=== PATIENT | female | born 1985 | race Caucasian/White ===

== ENCOUNTER → 2016-12-11 | Outpatient (CLI) | payer SELFPAY ==
[~2016-12-11] MED LIST: CALCTAB5 PO; PRENTAB26 PO
== END | disposition home or self-care (01) ==
LOC: C.LAB 07:13
PROVIDERS: ATTEND Nutritionist

== ENCOUNTER → 2017-02-25 | Outpatient (CLI) | payer BC ==
[2017-02-26 11:57] LABS: URINE APPEARANCE CLEAR (CLEAR); URINE BILIRUBIN NEG (NEG); URINE COLOR YELLOW; URINE NITRITE NEG (NEG); URINE SPECIFIC GRAVITY 1.008 (1.000-1.030); UROBILINOGEN NEG (NEG)
[2017-02-26 12:00] LABS: MANUAL MICROSCOPIC REQUIRED? NO; REVIEW REQ? NO
== END | disposition home or self-care (01) ==
LOC: C.LABSPEC 11:13
PROVIDERS: ATTEND Nurse Practitioner Family
DX: R39.9 Unspecified symptoms and signs involving the genitourinary system (principal)

== ENCOUNTER → 2017-03-19 | Outpatient (CLI) | payer BC ==
[2017-03-19 12:15] LABS: HEMATOCRIT 34.5 % (37-47); MEAN CELL VOLUME 89.6 fL (80-100); MEAN CORPUSCULAR HEMOGLOBIN 29.9 pg (25-34); MEAN CORPUSCULAR HGB CONC 33.3 g/dl (32-36); MEAN PLATELET VOLUME 11.9 fL (7.4-10.4); PLATELET COUNT 236 K/uL (130-400); RED BLOOD COUNT 3.85 M/uL (4.2-5.4); WHITE BLOOD COUNT 6.85 K/uL (4.8-10.8)
== END | disposition home or self-care (01) ==
LOC: C.LAB1850 09:49
PROVIDERS: ATTEND Physician Assistant
DX: N92.0 Excessive and frequent menstruation with regular cycle (principal)

== ENCOUNTER → 2017-05-06 | Outpatient (CLI) | payer BC ==
--- NOTE | 2017-05-06 16:23 | DIAGNOSTIC IMAGING REPORT ---
CT SCAN OF THE PARANASAL SINUSES CLINICAL HISTORY: Recurrent sinus infections. COMPARISON STUDY: No priors. TECHNIQUE: High-resolution CT scan of the paranasal sinuses is performed. Images are reviewed in the axial, sagittal, and coronal planes. IV contrast was not administered for this examination. A dose lowering technique was utilized adhering to the principles of ALARA. CT DOSE: 517.08 mGy.cm FINDINGS: Maxillary antra: There is mild mucosal thickening within the maxillary antra bilaterally. There are small air-fluid levels, right larger than left. Anterior ethmoid sinuses: By mucosal thickening and trace fluid is seen bilaterally, right greater than left. Posterior ethmoid sinuses: Mild mucosal thickening and trace fluid is seen bilaterally. Sphenoid sinuses: There is mild mucosal thickening in the sphenoid sinuses. An air-fluid level seen on the left. Frontal sinuses: Trace mucosal thickening seen on the right with a small air-fluid level. Clear on the left. Ostiomeatal complexes: The right ostiomeatal complex appears occluded. The left ostiomeatal complex appears patent with narrowing secondary to mucosal thickening. Frontoethmoidal and sphenoethmoidal recesses: The sphenoethmoidal recesses are patent with narrowing secondary to mucosal thickening. The right frontoethmoidal recess is occluded. The left frontoethmoidal recess is patent. Carotid arteries: The carotid arteries are covered noting a septal attachment on the right. Ethmoid roofs: The ethmoid roofs are symmetric. Nasal turbinates: Normal in appearance. Nasal septum: There is minimal leftward deviation of the bony nasal septum. Optic nerves: Covered. Orbits: The bony orbits are intact. Orbital contents are normal in appearance. Calvarium: The imaged calvarium is normal in appearance Mastoid air cells: Well pneumatized. Brain parenchyma: Partially visualized brain parenchyma is within normal limits. IMPRESSION: Pansinusitis as above. Electronically signed by: Sourav Oh M.D. 05/06/2017 4:21 PM Dictated Date/Time: 05/06/2017 4:18 PM
== END | disposition home or self-care (01) ==
LOC: C.CTS 15:53
PROVIDERS: ATTEND Nurse Practitioner Family
DX: J32.9 Chronic sinusitis, unspecified (principal); J01.40 Acute pansinusitis, unspecified

== ENCOUNTER → 2017-05-22 | Outpatient (CLI) | payer BC | END | disposition home or self-care (01) | LOC: C.PATHSPEC 11:00 | PROVIDERS: ATTEND Plastic Surgery | DX: D18.01 Hemangioma of skin and subcutaneous tissue (principal) ==

== ENCOUNTER → 2017-05-29 | Outpatient (CLI) | payer BC ==
--- NOTE | 2017-05-29 16:15 | DIAGNOSTIC IMAGING REPORT ---
CT OF THE SINUSES WITHOUT CONTRAST FUSION PROTOCOL CLINICAL HISTORY: Pansinusitis. COMPARISON STUDY: CT of the sinuses May 06, 2017. TECHNIQUE: Axial images of the sinuses were obtained without IV contrast according to Fusion protocol. Coronal reformats were viewed. FINDINGS: Visualized portions of the intracranial contents are unremarkable on this unenhanced examination. The mastoid air cells are clear as are the middle ears. The ossicles are intact. Orbits are unremarkable Global. Air fluid levels shown within the sinuses on exam of May 06, 2017 have resolved. Mucosal thickening has improved. There is mild mucosal thickening of the maxillary sinuses, right greater than left, there is minimal mucosal thickening and secretions within the left sphenoid sinus. The frontal and ethmoid sinuses are clear. The ostiomeatal complexes are patent. There is no bony destruction. There is no mass within the nasal cavity or the sinuses. There is no significant nasal septal deviation. Cribriform plate is intact. IMPRESSION: Near complete resolution of sinusitis shown on exam of May 06, 2017. Resolution of air-fluid levels with minimal residual mucosal thickening. Patent major drainage pathways. No evidence of acute sinusitis on this exam. Electronically signed by: Naveed Carpenter M.D. 05/29/2017 4:13 PM Dictated Date/Time: 05/29/2017 4:09 PM
== END | disposition home or self-care (01) ==
LOC: C.CTS 15:52
DX: J32.4 Chronic pansinusitis (principal); Z01.818 Encounter for other preprocedural examination

== ENCOUNTER → 2017-06-19 | Outpatient (CLI) | payer BC | END | disposition home or self-care (01) | LOC: C.LAB1850 14:31 | PROVIDERS: ATTEND Physician Assistant | DX: N93.9 Abnormal uterine and vaginal bleeding, unspecified (principal) ==

== ENCOUNTER → 2017-08-13 | Day surgery (SDC) | payer BC ==
[2017-07-28 08:25] VITALS: Ht 168.9 cm; Wt 61.4 kg
[~2017-08-13] VITALS: Ht 168.9 cm; Wt 61.4 kg
[~2017-08-13] MED LIST changes: +ATROPINE SULFATE 0.1 MG/ML 5ML SYR IV PRN; -CALCTAB5 PO; +DEXAMETHASONE SOD INJ 4 MG/ML VIAL ONE; +EpHEDrine SULFATE INJ 50 MG/ML AMP IV PRN; +FENTANYL CITRATE INJ 50 MCG/1 ML 2 ML VIAL IV PRN; +FENTANYL CITRATE INJ 50 MCG/1 ML 2 ML VIAL ONE; +IBUPROFEN 600 MG TAB PO PRN; +KETOROLAC TROMETHAMINE 30 MG/ML VIAL IV. PRN; +KETOROLAC TROMETHAMINE 30 MG/ML VIAL ONE; +LACTATED RINGER'S 1000ML 1,000 ML IV SCH; +LIDOCAINE HCL 2% 2 ML VIAL (20MG/ML) ONE; +MAGN1250 PO; +METOCLOPRAMIDE HCL INJ 5 MG/ML 2 ML VIAL IV PRN; +MIDAZOLAM HCL 1 MG/ML 2ML VIAL ONE; +MULT-506 PO; +ONDANSETRON INJ 2 MG/ML 2 ML VIAL IV PRN; +ONDANSETRON INJ 2 MG/ML 2 ML VIAL ONE; +OXYCODONE/ACETAMINOPHEN 5-325 TAB PO PRN; -PRENTAB26 PO; +PROPOFOL IV EMULSION 10 MG/ML 20 ML VIAL ONE; +SCOPOLAMINE 1.5 MG TDSY TD ONE; +SERT-234 PO; +SODIUM CHLORIDE 0.9% 1000ML 1,000 ML IV SCH
--- NOTE | 2017-08-13 12:00 | History & Physical Bridge - [place] ---
H&P Re-Evaluation Bridge Note: I have examined the patient, reviewed the History & Physical and in the interval since the performance of the History & Physical I have noted the following changes of clinical significance: No changes noted
--- NOTE | 2017-08-13 12:52 | Discharge Instructions-SurgCtr ---
Discharge Instructions Date of Service August 13, 2017. Visit Reason for Visit: Endometrial Polyp Discharge Discharge Diagnosis / Problem: D&C Hysteroscopy Discharge Goals Goal(s): Specific goals Medications Stopped Medications Name(s): Pt. was told not to take any of her medications this a.m.. Activity Recommendations Activity Limitations: per Instructions/Follow-up section Anesthesia . Post Anesthesia Instructions: If you have had General Anesthesia or IV Sedation: * Do not drive today. * Resume driving when surgeon permits. * Do not make important decisions or sign legal documents today. * Call surgeon for: 1. Temperature elevations greater than 101 degrees F. 2. Uncontrollable pain. 3. Excessive bleeding. 4. Persistent nausea and vomiting. 5. Medication intolerance (nausea, vomiting or rash). * For nausea and vomiting use only clear liquids such as: tea, soda, bouillon until nausea subsides, then gradually increase diet as tolerated. * If you have any concerns or questions, call your surgeon's office. If physician is unavailable and it is an emergency, call 911 or go to the nearest emergency room. . Instructions / Follow-Up Instructions / Follow-Up ACTIVITY RECOMMENDATIONS: * Avoid tampons, douching, hot tubs, pools, and intercourse until bleeding has stopped. * May shower as usual. * No strenuous activity for 24-48 hours. After 24-48 hours, you may do anything you feel like doing (driving and sports are okay). SPECIAL CARE INSTRUCTIONS: Special Diet: * Mild nausea may occur in the immediate post-operative period. * Take clear liquids such as tea, cola or bouillon until all nausea has subsided; you may then resume your normal diet. Special Care: * Light bleeding and vaginal spotting can last from a few days to 3-4 weeks. Call your doctor if bleeding becomes heavier than the heaviest part of your period. * Check your temperature twice a day for one week. If it goes above 100.4 degrees Fahrenheit (38.0 Celsius), notify your doctor. * Call your doctor's office for an appointment for 6 weeks after your surgery. FOLLOW-UP VISIT: Call your doctor's office for an appointment for 6 weeks after your surgery. Diet Recommendations Home Diet: resume previous diet Pending Studies Studies pending at discharge: no Medical Emergencies . Who to Call and When: Medical Emergencies: If at any time you feel your situation is an emergency, please call 911 immediately. . Non-Emergent Contact Non-Emergency issues call your: Primary Care Provider . . "Provider Documentation" section prepared by Emma Nichols. .
--- NOTE | 2017-08-13 13:26 | [facility] Post Operative Brief Note ---
Immediate Operative Summary Operative Date August 13, 2017. Pre-Operative Diagnosis Endometrial thickening Post-Operative Diagnosis Same Procedure(s) Performed Dilatation And Curettage, Hysteroscopy Surgeon Dr. Nichols Ticket Puller Surgeon(s) None Estimated Blood Loss 5ML Findings Consistent with Post-Op Diagnosis Specimens A: Endometrial Curettings Drains None Anesthesia Type General Complication(s) none Disposition Accompanied Pt To Recovery: no Disposition: Recovery Room / PACU
[2017-08-13 14:32] VITALS: BP 129/81; PULSE 57; O2SAT 100
--- NOTE | 2017-08-13 14:34 | Anesthesia Progress Nt - [facility] ---
Anesthesia Post Op Note Date & Time August 13, 2017 at 14:34 Vital Signs Pain Intensity: 1 Vital Signs Past 12 Hours Date Time Temp Pulse Resp B/P (MAP) Pulse Ox O2 Delivery O2 Flow Rate FiO2 08/13/17 14:12 37.1 65 16 139/87 (104) 100 Room Air 08/13/17 14:06 37.4 62 16 128/81 99 Room Air 08/13/17 14:05 128/81 08/13/17 14:03 70 18 08/13/17 14:03 72 18 100 08/13/17 14:00 128/82 08/13/17 13:58 67 26 08/13/17 13:58 67 26 100 08/13/17 13:55 128/80 08/13/17 13:53 69 17 08/13/17 13:53 66 17 100 08/13/17 13:52 65 18 100 08/13/17 13:52 64 18 08/13/17 13:50 122/88 08/13/17 13:47 59 32 08/13/17 13:47 55 32 95 08/13/17 13:45 126/88 08/13/17 13:42 58 16 100 08/13/17 13:42 57 16 08/13/17 13:40 127/88 08/13/17 13:37 61 27 08/13/17 13:37 61 27 100 08/13/17 13:35 133/88 08/13/17 13:33 125/86 08/13/17 13:32 37 64 16 125/86 100 Diffusion Mask 6 08/13/17 12:05 36.7 69 16 134/92 (106) 99 Room Air Notes Mental Status: alert / awake / arousable, participated in evaluation Pt Amnestic to Procedure: Yes Nausea / Vomiting: adequately controlled Pain: adequately controlled Airway Patency, RR, SpO2: stable & adequate BP & HR: stable & adequate Hydration State: stable & adequate Anesthetic Complications: no major complications apparent
--- NOTE | 2017-08-13 20:21 | OPERATIVE REPORT ---
DATE OF OPERATION: 08/13/2017 PREOPERATIVE DIAGNOSIS: Endometrial thickening. POSTOPERATIVE DIAGNOSIS: Endometrial thickening. PROCEDURE: D and C, hysteroscopy. SURGEON: Emma Nichols MD HEATING UNIT INSTALLER: None. ESTIMATED BLOOD LOSS: 5 mL FINDINGS: Consistent with postoperative diagnosis. SPECIMENS: Endometrial curettings. DRAINS: None. ANESTHESIA: General. FLUID DEFICIT: 110 mL normal saline. COMPLICATIONS: None. DISPOSITION: Stable to recovery. DESCRIPTION: Emma was placed on the table in dorsal lithotomy position with candy-cane stirrups, prepped and draped in standard sterile fashion and a hard time-out was taken. The bladder was emptied of urine via straight catheterization. Weighted and Jones specula were introduced to the vagina and the anterior lip of the cervix was grasped with a single-tooth tenaculum. The uterus then sounded to 9 cm depth. The cervix was serially dilated to allow passage of a hysteroscope. Hysteroscope was then introduced to the uterus. The endometrial cavity was visualized and seen to be filled with several projections of a polypoid tissue that was arising from multiple areas within the uterus notably, the anterior wall and also the right posterior wall. The scope was used to visualize both tubal ostia and then withdrawn. Sharp curettage was then used to curette the entire wall of the uterine cavity until good cry was felt. Polyp forceps were used to retrieve some significant sized pieces of tissue that were knocked loose using the curette. The scope was then reintroduced and the cavity was seen to have been restored to a normal shape with ostia visualized bilaterally. All instruments were withdrawn and the patient was transferred in stable condition to PACU. I attest to the content of the Intraoperative Record and any orders documented therein. Any exception s are noted below.
== END | disposition home or self-care (01) ==
LOC: X.SURG 11:48
PROVIDERS: ATTEND Obstetrics & Gynecology
DX: R93.8 Abnormal findings on diagnostic imaging of other specified body structures (principal); Z88.0 Allergy status to penicillin; Z91.012 Allergy to eggs; Z90.89 Acquired absence of other organs

== ENCOUNTER 2021-10-25 08:40 | Observation (INO) ==
[2021-10-25] MEDS ORDERED: MoRPHine SULFATE 4 MG/ML 1 ML CARP\\VIAL IV STA ×2 (09:13→10:25)
[2021-10-25] MEDS ORDERED: ONDANSETRON INJ 2 MG/ML 2 ML VIAL IV STA (09:13)
[2021-10-25 09:51] LABS: Basophils # (auto) 0.02 K/uL (0-0.2); Basophils % (auto) 0.2 %; Eosinophils # (auto) 0.11 K/uL (0-0.50); Eosinophils % (auto) 1.2 %; Hematocrit (blood only) 35.9 % (34.1-44.9); Hemoglobin 12.3 g/dl (12.0-16.0); Immature Granulocytes # (auto) 0.03 K/uL (0.00-0.02); Immature Granulocytes % (auto) 0.3 %; Lymphocytes # (auto) 1.05 K/uL (1.2-3.4); Lymphocytes % (auto) 11.1 %; Mean Corpuscular Hemoglobin 32.3 pg (25.0-34.0); Mean Corpuscular Hgb Conc 34.3 g/dL (32.0-36.0); Mean Corpuscular Volume 94.2 fL (80.0-100.0); Mean Platelet Volume 11.2 fL (9.4-12.3); Monocytes # (auto) 1.05 K/uL (0.24-0.82); Monocytes % (auto) 11.1 %; Neutrophils # (auto) 7.22 K/uL (1.4-6.5); Neutrophils % (auto) 76.1 %; Platelet Count 164 K/uL (130-400); RDW Coefficient of Variation 12.5 % (11.5-14.5); RDW Standard Deviation 42.9 fL (36.4-46.3); Red Blood Count 3.81 M/uL (3.93-5.22); White Blood Count 9.48 K/ul (4.8-10.8)
[2021-10-25 09:56] LABS: Appearance Urine Cloudy (Clear); Bacteria Urine Automated Negative (Negative); Bilirubin Urine Negative (Negative); Blood Urine Negative (Negative); Color Urine Yellow; Epithelial Cell Urine Auto >30 /lpf (0-5); Glucose Urine UA Negative (Negative); Ketones Urine Negative (Negative); Leukocyte Esterase Urine Negative (Negative); Nitrite Urine Negative (Negative); Protein Urine Negative (Negative); RBC Urine Automated 0-4 /hpf (0-4); Specific Gravity Urine 1.017 (1.000-1.030); Urobilinogen Urine Negative (Negative)
[2021-10-25 09:57] LABS: Pregnancy Test, Urine Negative (Negative)
[2021-10-25 10:23] LABS: Albumin Globulin Ratio 1.5 (0.9-2); BUN Creatinine Ratio 12.7 (10-20); Bilirubin,Total 1.1 mg/dl (0.2-1.0); Calcium 9.1 mg/dl (8.5-10.1); Creatinine Clr Calc Pharmacy 104.5 ml/min; Est GFR (African American) 125.2 ml/min; Est GFR (Non-African American) 108.1 ml/min; Globulin 2.7 gm/dl (2.5-4.0); Potassium 3.8 mmol/L (3.5-5.1); Total Protein 6.7 gm/dl (6.0-8.3)
[2021-10-25] MEDS ORDERED: OPTIRAY 320 100ml IV ONE (10:49)
--- NOTE | 2021-10-25 11:16 | CT Scan Report ---
CT abd pelvis IV con only CLINICAL HISTORY: Rectal bleed, R abd pain - h/o diverticulitis TECHNIQUE: Helical axial images of the abdomen and pelvis were obtained and displayed. Automated dose lowering techniques and/or adjustment according to patient size were utilized for this exam. This e xam was performed with intravenous contrast. CT DOSE: 319.95 mGy.cm COMPARISON: Comparison is made to CT abdomen pelvis 10/25/2021 FINDINGS: Lower chest: No acute abnormality Liver: Unremarkable. No focal lesions are seen. Gallbladder and biliary tree: No calcified gallstones. Normal caliber wall. No intra- or extrahepatic biliary ductal dilation. Pancreas: Unremarkable, no focal lesions. Spleen: Unremarkable. Adrenals: Unremarkable. Kidneys and ureters: Unremarkable. Bladder: Unremarkable. Reproductive organs: Unremarkable. Bowel: The appendix measures 7 mm in diameter. Inflammatory changes are seen about the cecum. Extensi ve diverticulosis is noted. Lymph nodes Retroperitoneal: Unremarkable. Pelvic: Unremarkable. Mesenteric: Subcentimeter nodes are seen most prominent in the right lower quadrant. Peritoneum: Free fluid is seen in the right lower quadrant. Vessels: Unremarkable. Abdominal wall: A fat-containing umbilical hernia is seen. Bones: Unremarkable. IMPRESSION: There is dilation and mild wall thickening of the base of the appendix. Inflammatory changes are foun d in the cecum. This is favored to represent acute appendicitis with reactive changes in the adjacent cecum, however colitis in the cecum with reactive inflammation of the appendix is also possible. Fat stranding and regional prominent lymph nodes are noted however there is no evidence of perforation o r abscess formation. ACT 112: Negative or not required by law. Electronically signed by: Dmo Bonilla M.D. 10/25/2021 11:14 AM
[2021-10-25] MEDS ORDERED: PIPERACILLIN/TAZOBACTAM 4.5 GM/120 ML BAG IV ONE (11:49)
--- NOTE | 2021-10-25 12:16 | History & Physical Report ---
Date of Service October 25, 2021 Assessment & Plan (1) Cecal diverticulitis: Plan: Suspected recurrent diverticulitis rather than appendicitis per surgery IV Zosyn, LR @ 125 ml/hr, NPO except sips with medications Consult surgery (2) Chronic constipation: Plan: Hold prucalopride (3) Anxiety: Plan: Continue sertraline 100mg PO daily Plan VTE Prophylaxis - given young age patient at low risk, chemical prophylaxis deferred Diet - NPO Disposition - admit to med/surg History of Present Illness Chief Complaint: Abdominal pain Primary Care Provider: Jeet Dey III, NICOLETTE Emma Jameson is a 36 year old female who presents to the ER with abdominal pain. She reports symptoms started on Friday (3 days ago) and progressively became worse since then. Similar to her last diverticulitis episode in 2017. Abdominal pain has stayed in lower abdomen but severity getting worse. Current severity 5/10, 7/10 on arrival to ER, at worst 9/10. Associated chills but no objective fever. The last 24 hours she has also had bright red blood per rectum. Taken off Orilissa on October 09 as ineffective for her endometriosis. On Motegrity for constipation. Sertraline for anxiety - notes she takes 100 rather than 150mg. In the ER CT A/P was concerning for possible appendicitis however on review by surgery suspect to be recurrence of her cecal diverticulitis. She was referred to medicine for admission and ongoing management for cecal diverticulitis. Allergies Allergy/AdvReac Type Severity Reaction Status Date / Time ciprofloxacin Allergy Intermediate LIPS Verified 10/25/21 12:03 SWELLING Home Medications Medication Instructions Recorded Confirmed Type sertraline 100 mg tablet 150 mg PO QAM 03/15/21 10/25/21 History prucalopride 2 mg tablet 2 mg PO DAILY #30 tabs 09/04/21 10/25/21 Rx (Motegrity) Past Med/Surg History Medical History Acute pancreatitis Anemia "MILD" Anxiety Cecal diverticulitis Chronic anemia Diverticulosis Fracture of proximal phalanx of toe GERD (gastroesophageal reflux disease) History of female infertility Hypertrophy of both inferior nasal turbinates Mass of soft tissue of right lower extremity Menorrhagia Ovarian cyst Ovarian hyperstimulation syndrome Recurrent sinus infections Spondylolisthesis Surgical History History of dilatation and curettage (08/2017) History of tonsillectomy History of tooth extraction Hx of colonoscopy (02/2019) Nausea and vomiting after administration of anesthetic agent Family History Grandmother (Paternal) Diabetes Grandmother (Maternal) Diabetes Father Abdominal aortic aneurysm Cardiac disorder Hypertension Myocardial infarction Sister Abdominal aortic aneurysm Aunt Abdominal aortic aneurysm paternal aunt Breast cancer maternal aunt Uncle Abdominal aortic aneurysm paternal uncle Mother Hypertension Family/Other Hypertension grandparent Myocardial infarction Grandfather (Maternal) Lung cancer Denies family history of Pancreatic cancer Ovarian cancer Prostate cancer Bleeding disorder Colorectal cancer Uterine cancer Social History Smoking Status: Never smoker Second Hand Exposure: No; Hx Alcohol Use: Yes Alcohol type: other Alcohol Intake Frequency: 2-3 x/Week Hx Substance Use: No Preferred Language: Turkmen Communication Ability: Effective Visual Impairment: No Limitations Hearing Ability: Normal Lease Out Worker Required: No Beliefs That Will Affect Care: None marital status: Current Living Situation: Spouse current occupational status: employed current occupation: Physical Therapist Other Information That Helps Us Care for You: No Feels Safe at Home: Yes Safety Concerns: Feels Safe At This Time Childhood Exposure to Second-Hand Smoke: Yes Dental Care, Regularly: Yes Physical Activity Frequency: Daily Seatbelt Use: always Sunscreen Use: Yes Assistive Devices: Glasses Review of Systems Review of Systems: All systems reviewed & are unremarkable except as noted in HPI & below Physical Exam Constitutional: WD/WN, vitals as above Eyes: PERRL, conjunctivae normal, anicteric sclerae Respiratory: normal respiratory effort, lungs clear to auscultation Cardiovascular: RRR, no murmur, no edema Gastrointestinal (Abdomen): Inspection/Auscultation: normal bowel sounds Percussion/Palpation: + abdomen tender (lower), + guarding and abdomen soft; abdomen not rigid Musculoskeletal: no cyanosis or clubbing, extremities motor strength 5/5 Skin: no rashes, warm and dry Neurologic: moves all extremities and awake; not confused Psychiatric: A+Ox3, euthymic affect Results & Data Results & Data ([facility]) Vital Signs (Past 12 Hours) Vital Signs Temp Pulse Resp BP Pulse Ox O2 Del Method 07/21/22 08:43 36.7 C 97 H 18 126/84 100 Room Air Laboratory Results Abnormal lab results 10/25/21 10/25/21 10/25/21 Range/Units 09:34 09:34 09:40 RBC 3.81 L (3.93-5.22) M/uL Neut # (Auto) 7.22 H (1.4-6.5) K/uL Lymph # (Auto) 1.05 L (1.2-3.4) K/uL Bowman # (Auto) 1.05 H (0.24-0.82) K/uL Immature Gran # (Auto) 0.03 H (0.00-0.02) K/uL Total Bilirubin 1.1 H (0.2-1.0) mg/dl Urine Appearance Cloudy A (Clear) U Epithel Cells (Auto) >30 H (0-5) /lpf Diagnostic Findings CT abd pelvis IV con only CLINICAL HISTORY: Rectal bleed, R abd pain - h/o diverticulitis TECHNIQUE: Helical axial images of the abdomen and pelvis were obtained and displayed. Automated dose lowering techniques and/or adjustment according to patient size were utilized for this exam. This exam was performed with intravenous contrast. CT DOSE: 319.95 mGy.cm COMPARISON: Comparison is made to CT abdomen pelvis 10/25/2021 FINDINGS: Lower chest: No acute abnormality Liver: Unremarkable. No focal lesions are seen. Gallbladder and biliary tree: No calcified gallstones. Normal caliber wall. No intra- or extrahepatic biliary ductal dilation. Pancreas: Unremarkable, no focal lesions. Spleen: Unremarkable. Adrenals: Unremarkable. Kidneys and ureters: Unremarkable. Bladder: Unremarkable. Reproductive organs: Unremarkable. Bowel: The appendix measures 7 mm in diameter. Inflammatory changes are seen about the cecum. Extensive diverticulosis is noted. Lymph nodes Retroperitoneal: Unremarkable. Pelvic: Unremarkable. Mesenteric: Subcentimeter nodes are seen most prominent in the right lower quadrant. Peritoneum: Free fluid is seen in the right lower quadrant. Vessels: Unremarkable. Abdominal wall: A fat-containing umbilical hernia is seen. Bones: Unremarkable. IMPRESSION: There is dilation and mild wall thickening of the base of the appendix. Inflammatory changes are found in the cecum. This is favored to represent acute appendicitis with reactive changes in the adjacent cecum, however colitis in the cecum with reactive inflammation of the appendix is also possible. Fat stranding and regional prominent lymph nodes are noted however there is no evidence of perforation or abscess formation. Medications Administered ER medications given: Zosyn 4.5 g IV Morphine 4 mg IV x2 Ondansetron 4 mg IV Code Status & VTE Plan Code Status Full VTE Prophylaxis Plan VTE Prophylaxis will be ordered: No PG Care Time/CCT Total # of Minutes Spent Total Time Spent with Patient: Total time spent is greater than 50% in coordination of care (as documented) at patient's floor/unit and/or counseling patient: Coding Level of Care Code 55669 Initial Inpt Care Lvl 2 Diagnoses Cecal diverticulitis K57.32 Chronic constipation K59.09 Anxiety F41.9
--- NOTE | 2021-10-25 12:51 | Surgery Consultation ---
Date of Consultation October 25, 2021 Assessment & Plan (1) Cecal diverticulitis: Plan 36 year-old female with history of cecal diverticulitis in 2019 now presents to ED with 4 day history of right lower abdominal pain with associated nausea, vomiting, dark stools and hematochezia. No leukocytosis. CT scan showing cecal inflammation with mild inflammation of the base of the appendix. Review of CT with radiologist shows normal appendiceal tip and likely inflammation of base of appendix is from the cecal diverticulitis. Plan: Dr. Almeida discussed imaging findings with patient and her . Likely another episode of cecal diverticulitis based on symptoms, prior history and imaging findings. Would recommend conservative management with IV fluids, bowel rest, IV antibiotics and repeating colonoscopy in 6-8 weeks. May require discussion of surgical resection given recurrent episodes of diverticulitis and her young age. This can be discussion as outpatient once she is through this acute phase. will continue to follow Dr. Almeida has seen and examined pt, see addendum for further recommendations/plan. Supervising Physician Co-Signing Physician Notes I have seen and examined the patient directly, and agree with the above assessment and plan. It appears that this is a recurrence of her cecal diverticulitis, and not appendicitis. She has had this in the past. We will treat her with IV antibiotics and bowel rest. She will require colonoscopy in 6 to 8 weeks. We discussed the potential need for cecal resection down the road. We will continue to follow while she is in the hospital. History of Present Illness Reason for Consultation: Cecal diverticulitis, possible appendicitis Requesting Physician: Bartolo Waterman PA-C Attending Physician: Johann Echevarria MD History of Present Illness Emma is a 36 year-old female with history of cecal diverticulitis in 2019 who presented to ED with compliant of right sided abdominal pain with associated nausea, vomiting, rectal bleeding that began on Friday. States she has chronic abdominal pain with history of possible endometriosis and ovarian cysts. Usually pain associated with her ovaries is on the left side. History of cecal diverticulitis treated conservatively in 2019 and had colonoscopy which showed two diverticula in the cecum. States she has chronic constipation and takes medications regularly for her constipation. No prior abdominal surgeries. stool looked dark black yesterday and had bright red blood in stools today. ER work-up showed no leukocytosis. CT scan of abdomen and pelvis showed some mild dilatation and wall thickening of the base of the appendix with inflammatory changes of the cecum. In review of CT scan with radiologist, looks like tip of appendix is normal and the inflammation of the base of the appendix is likely from cecal diverticulitis. Allergies Allergy/AdvReac Type Severity Reaction Status Date / Time ciprofloxacin Allergy Intermediate LIPS Verified 10/25/21 12:03 SWELLING Home Medications Medication Instructions Recorded Confirmed Type sertraline 100 mg tablet 150 mg PO QAM 03/15/21 10/25/21 History prucalopride 2 mg tablet 2 mg PO DAILY #30 tabs 09/04/21 10/25/21 Rx ([facility]) Patient History Medical History (Updated 10/25/21 @ 12:32 by Johann Echevarria MD) Acute pancreatitis Anemia "MILD" Anxiety Cecal diverticulitis Chronic anemia Diverticulosis Fracture of proximal phalanx of toe GERD (gastroesophageal reflux disease) History of female infertility Hypertrophy of both inferior nasal turbinates Mass of soft tissue of right lower extremity Menorrhagia Ovarian cyst Ovarian hyperstimulation syndrome Recurrent sinus infections Spondylolisthesis Surgical History History of dilatation and curettage (08/2017) History of tonsillectomy History of tooth extraction Hx of colonoscopy (02/2019) Nausea and vomiting after administration of anesthetic agent Family History Grandmother (Paternal) Diabetes Grandmother (Maternal) Diabetes Father Abdominal aortic aneurysm Cardiac disorder Hypertension Myocardial infarction Sister Abdominal aortic aneurysm Aunt Abdominal aortic aneurysm paternal aunt Breast cancer maternal aunt Uncle Abdominal aortic aneurysm paternal uncle Mother Hypertension Family/Other Hypertension grandparent Myocardial infarction Grandfather (Maternal) Lung cancer Denies family history of Pancreatic cancer Ovarian cancer Prostate cancer Bleeding disorder Colorectal cancer Uterine cancer Social History Smoking Status: Never smoker Second Hand Exposure: No; Hx Alcohol Use: Yes Alcohol type: beer, wine and hard liquor Alcohol Intake Frequency: 2-3 x/Week Hx Substance Use: No Preferred Language: Yoruba Communication Ability: Effective Visual Impairment: No Limitations Hearing Ability: Normal Construction Accountant Required: No Beliefs That Will Affect Care: None marital status: Current Living Situation: Spouse current occupational status: employed current occupation: Physical Therapist Feels Safe at Home: Yes Childhood Exposure to Second-Hand Smoke: Yes Dental Care, Regularly: Yes Physical Activity Frequency: Daily Seatbelt Use: always Sunscreen Use: Yes Assistive Devices: Glasses Review of Systems Review of Systems: All systems reviewed & are unremarkable except as noted in HPI & below Physical Exam Constitutional: WD/WN, vitals as above no acute distress and not ill appearing Neck: normal visual inspection and trachea midline Respiratory: normal respiratory effort, lungs clear to auscultation Cardiovascular: RRR, no murmur, no edema Gastrointestinal (Abdomen): Inspection/Auscultation: abdomen normal to inspection; abdomen not distended Percussion/Palpation: + abdomen tender (RLQ and RUQ), + guarding (voluntary with deep palpation) and abdomen soft; abdomen not rigid Skin: no rashes, warm and dry Psychiatric: A+Ox3, euthymic affect Results & Data ([facility]) Vital Signs (Past 12 Hours) Vital Signs Temp Pulse Resp BP Pulse Ox O2 Del Method 10/25/21 08:43 36.7 C 97 H 18 126/84 100 Room Air Laboratory Results 10/25/21 10/25/21 10/25/21 Range/Units 09:40 09:40 09:34 WBC (4.8-10.8) K/ul RBC (3.93-5.22) M/uL Hgb (12.0-16.0) g/dl Hct (34.1-44.9) % MCV (80.0-100.0) fL MCH (25.0-34.0) pg MCHC (32.0-36.0) g/dL RDW Std Deviation (36.4-46.3) fL RDW Coeff of [place] (11.5-14.5) % Plt Count (130-400) K/uL MPV (9.4-12.3) fL Immature Gran % (Auto) % Neut % (Auto) % Lymph % (Auto) % [place] % (Auto) % Eos % (Auto) % Baso % (Auto) % Neut # (Auto) (1.4-6.5) K/uL Lymph # (Auto) (1.2-3.4) K/uL [place] # (Auto) (0.24-0.82) K/uL Eos # (Auto) (0-0.50) K/uL Baso # (Auto) (0-0.2) K/uL Immature Gran # (Auto) (0.00-0.02) K/uL Sodium 139 (136-145) mmol/L Potassium 3.8 (3.5-5.1) mmol/L Chloride 106 (98-107) mmol/L Carbon Dioxide 28 (21-32) mmol/L Anion Gap 5 (3-11) BUN 9 (6-23) mg/dl Creatinine 0.71 (0.6-1.2) mg/dl Est Cr Clr Drug Dosing 104.5 ml/min Est GFR ( Amer) 125.2 ml/min Est GFR (Non-Af Amer) 108.1 ml/min BUN/Creatinine Ratio 12.7 (10-20) Glucose 84 (70-99(Fasting)) mg/dl Calcium 9.1 (8.5-10.1) mg/dl Total Bilirubin 1.1 H (0.2-1.0) mg/dl AST 15 (13-39) U/L ALT 11 (7-52) U/L Alkaline Phosphatase 66 (34-104) U/L Total Protein 6.7 (6.0-8.3) gm/dl Albumin 4.0 (3.4-5.0) gm/dl Globulin 2.7 (2.5-4.0) gm/dl Albumin/Globulin Ratio 1.5 (0.9-2) Lipase 15 (11-82) U/L Urine Color Yellow Urine Appearance Cloudy A (Clear) Urine pH 7.0 (4.5-7.5) Ur Specific [place] 1.017 (1.000-1.030) Urine Protein Negative (Negative) Urine Glucose (UA) Negative (Negative) Urine Ketones Negative (Negative) Urine Blood Negative (Negative) Urine Nitrite Negative (Negative) Urine Bilirubin Negative (Negative) Urine Urobilinogen Negative (Negative) Ur Leukocyte Esterase Negative (Negative) Urine WBC (Auto) 1-5 (0-5) /hpf Urine RBC (Auto) 0-4 (0-4) /hpf U Hyaline Cast (Auto) 1-5 (0-5) /lpf U Epithel Cells (Auto) >30 H (0-5) /lpf Urine Bacteria (Auto) Negative (Negative) Urine Test Negative (Negative) 10/25/21 Range/Units 09:34 WBC 9.48 (4.8-10.8) K/ul RBC 3.81 L (3.93-5.22) M/uL Hgb 12.3 (12.0-16.0) g/dl Hct 35.9 (34.1-44.9) % MCV 94.2 (80.0-100.0) fL MCH 32.3 (25.0-34.0) pg MCHC 34.3 (32.0-36.0) g/dL RDW Std Deviation 42.9 (36.4-46.3) fL RDW Coeff of [place] 12.5 (11.5-14.5) % Plt Count 164 (130-400) K/uL MPV 11.2 (9.4-12.3) fL Immature Gran % (Auto) 0.3 % Neut % (Auto) 76.1 % Lymph % (Auto) 11.1 % [place] % (Auto) 11.1 % Eos % (Auto) 1.2 % Baso % (Auto) 0.2 % Neut # (Auto) 7.22 H (1.4-6.5) K/uL Lymph # (Auto) 1.05 L (1.2-3.4) K/uL [place] # (Auto) 1.05 H (0.24-0.82) K/uL Eos # (Auto) 0.11 (0-0.50) K/uL Baso # (Auto) 0.02 (0-0.2) K/uL Immature Gran # (Auto) 0.03 H (0.00-0.02) K/uL Sodium (136-145) mmol/L Potassium (3.5-5.1) mmol/L Chloride (98-107) mmol/L Carbon Dioxide (21-32) mmol/L Anion Gap (3-11) BUN (6-23) mg/dl Creatinine (0.6-1.2) mg/dl Est Cr Clr Drug Dosing ml/min Est GFR ( Amer) ml/min Est GFR (Non-Af Amer) ml/min BUN/Creatinine Ratio (10-20) Glucose (70-99(Fasting)) mg/dl Calcium (8.5-10.1) mg/dl Total Bilirubin (0.2-1.0) mg/dl AST (13-39) U/L ALT (7-52) U/L Alkaline Phosphatase (34-104) U/L Total Protein (6.0-8.3) gm/dl Albumin (3.4-5.0) gm/dl Globulin (2.5-4.0) gm/dl Albumin/Globulin Ratio (0.9-2) Lipase (11-82) U/L Urine Color Urine Appearance (Clear) Urine pH (4.5-7.5) Ur Specific [place] (1.000-1.030) Urine Protein (Negative) Urine Glucose (UA) (Negative) Urine Ketones (Negative) Urine Blood (Negative) Urine Nitrite (Negative) Urine Bilirubin (Negative) Urine Urobilinogen (Negative) Ur Leukocyte Esterase (Negative) Urine WBC (Auto) (0-5) /hpf Urine RBC (Auto) (0-4) /hpf U Hyaline Cast (Auto) (0-5) /lpf U Epithel Cells (Auto) (0-5) /lpf Urine Bacteria (Auto) (Negative) Urine Test (Negative) Diagnostic Findings CT abd pelvis IV con only CLINICAL HISTORY: Rectal bleed, R abd pain - h/o diverticulitis TECHNIQUE: Helical axial images of the abdomen and pelvis were obtained and displayed. Automated dose lowering techniques and/or adjustment according to patient size were utilized for this exam. This exam was performed with intravenous contrast. CT DOSE: 319.95 mGy.cm COMPARISON: Comparison is made to CT abdomen pelvis 10/25/2021 FINDINGS: Lower chest: No acute abnormality Liver: Unremarkable. No focal lesions are seen. Gallbladder and biliary tree: No calcified gallstones. Normal caliber wall. No intra- or extrahepatic biliary ductal dilation. Pancreas: Unremarkable, no focal lesions. Spleen: Unremarkable. Adrenals: Unremarkable. Kidneys and ureters: Unremarkable. Bladder: Unremarkable. Reproductive organs: Unremarkable. Bowel: The appendix measures 7 mm in diameter. Inflammatory changes are seen about the cecum. Extensive diverticulosis is noted. Lymph nodes Retroperitoneal: Unremarkable. Pelvic: Unremarkable. Mesenteric: Subcentimeter nodes are seen most prominent in the right lower quadrant. Peritoneum: Free fluid is seen in the right lower quadrant. Vessels: Unremarkable. Abdominal wall: A fat-containing umbilical hernia is seen. Bones: Unremarkable. IMPRESSION: There is dilation and mild wall thickening of the base of the appendix. Inflammatory changes are found in the cecum. This is favored to represent acute appendicitis with reactive changes in the adjacent cecum, however colitis in the cecum with reactive inflammation of the appendix is also possible. Fat stranding and regional prominent lymph nodes are noted however there is no evidence of perforation or abscess formation.
[2021-10-25] MEDS ORDERED: ONDANSETRON INJ 2 MG/ML 2 ML VIAL IV PRN (14:31)
[2021-10-25] MEDS: MoRPHine SULFATE 4 MG/ML 1 ML CARP\\VIAL IV PRN ×2 (15:36→19:54)
--- NOTE | 2021-10-25 15:55 | Emergency Department Note ---
History of Present Illness General Chief complaint: Abdominal Pain Stated complaint: ABDOMINAL PAIN Time Seen by Provider: 10/25/21 08:55 History of Present Illness Maximum Pain Intensity: 7 36-year-old female who presents to the emergency department for evaluation of right lower quadrant abdominal pain and blood in her stool. The patient reports that she started with discomfort on Friday, and noticed blood in her stools over the past few days. The blood initially looked dark in color, and was mixed in with the stool. She noticed brighter blood this morning. The patient has been nauseated for the past 2 days with vomiting overnight. Patient reports a prior history of cecal diverticulitis in 2018. She did have a colonoscopy at that time, with no additional colonoscopies since. Patient also reports a prior history of ovarian cysts IBS-C. She denies prior history of abdominal surgeries. The patient rates her discomfort a 6 out of 10. Home Medications Medication Instructions Recorded Confirmed Type sertraline 100 mg tablet 150 mg PO QAM 03/15/21 10/25/21 History prucalopride 2 mg tablet 2 mg PO DAILY #30 tabs 09/04/21 10/25/21 Rx ([facility]) Allergies Allergy/AdvReac Type Severity Reaction Status Date / Time ciprofloxacin Allergy Intermediate LIPS Verified 10/25/21 12:03 SWELLING Past Med/Surg History Medical History Acute pancreatitis Anemia "MILD" Anxiety Cecal diverticulitis Chronic anemia Diverticulosis Fracture of proximal phalanx of toe GERD (gastroesophageal reflux disease) History of female infertility Hypertrophy of both inferior nasal turbinates Mass of soft tissue of right lower extremity Menorrhagia Ovarian cyst Ovarian hyperstimulation syndrome Recurrent sinus infections Spondylolisthesis Surgical History History of dilatation and curettage (08/2017) History of tonsillectomy History of tooth extraction Hx of colonoscopy (02/2019) Nausea and vomiting after administration of anesthetic agent Family History Grandmother (Paternal) Diabetes Grandmother (Maternal) Diabetes Father Abdominal aortic aneurysm Cardiac disorder Hypertension Myocardial infarction Sister Abdominal aortic aneurysm Aunt Abdominal aortic aneurysm paternal aunt Breast cancer maternal aunt Uncle Abdominal aortic aneurysm paternal uncle Mother Hypertension Family/Other Hypertension grandparent Myocardial infarction Grandfather (Maternal) Lung cancer Denies family history of Pancreatic cancer Ovarian cancer Prostate cancer Bleeding disorder Colorectal cancer Uterine cancer Social History Smoking Status: Never smoker Second Hand Exposure: No; Hx Alcohol Use: Yes Alcohol type: other Alcohol Intake Frequency: 2-3 x/Week Hx Substance Use: No Preferred Language: Georgian Communication Ability: Effective Visual Impairment: No Limitations Hearing Ability: Normal Clinic Coordinator Required: No Beliefs That Will Affect Care: None marital status: Current Living Situation: Spouse current occupational status: employed current occupation: Physical Therapist Other Information That Helps Us Care for You: No Feels Safe at Home: Yes Safety Concerns: Feels Safe At This Time Childhood Exposure to Second-Hand Smoke: Yes Dental Care, Regularly: Yes Physical Activity Frequency: Daily Seatbelt Use: always Sunscreen Use: Yes Assistive Devices: Glasses Review of Systems 10 system review was performed and was negative except for pertinent positives and negatives as indicated in history of present illness Physical Exam Vital Signs Vital Signs - 24 hr 10/25/21 08:43 10/25/21 09:46 10/25/21 09:50 Temperature 36.7 C Temperature Source Oral Pulse Rate 97 H 86 86 Pulse Rate from SpO2 Sensor 86 88 Respiratory Rate 18 16 18 Blood Pressure 126/84 Blood Pressure Mean 98 Pulse Oximetry 100 95 95 Oxygen Delivery Method Room Air Sepsis Recent Fever Within 48 Hours No Sepsis New/Unexplained Change in Mental Status No Sepsis Action Taken by Nursing No Action Required 10/25/21 10:00 10/25/21 10:10 10/25/21 10:20 Temperature Temperature Source Pulse Rate 86 85 88 Pulse Rate from SpO2 Sensor 85 87 89 Respiratory Rate 16 21 19 Blood Pressure Blood Pressure Mean Pulse Oximetry 95 95 96 Oxygen Delivery Method Sepsis Recent Fever Within 48 Hours Sepsis New/Unexplained Change in Mental Status Sepsis Action Taken by Nursing 10/25/21 10:30 10/25/21 10:40 10/25/21 10:55 Temperature Temperature Source Pulse Rate 84 81 92 H Pulse Rate from SpO2 Sensor 84 80 Respiratory Rate 22 14 Blood Pressure Blood Pressure Mean Pulse Oximetry 95 96 Oxygen Delivery Method Sepsis Recent Fever Within 48 Hours Sepsis New/Unexplained Change in Mental Status Sepsis Action Taken by Nursing 10/25/21 11:00 10/25/21 11:10 10/25/21 11:20 Temperature Temperature Source Pulse Rate 80 85 86 Pulse Rate from SpO2 Sensor 80 85 86 Respiratory Rate 14 15 24 Blood Pressure Blood Pressure Mean Pulse Oximetry 97 94 94 Oxygen Delivery Method Sepsis Recent Fever Within 48 Hours Sepsis New/Unexplained Change in Mental Status Sepsis Action Taken by Nursing 10/25/21 11:30 10/25/21 11:40 10/25/21 11:50 Temperature Temperature Source Pulse Rate 86 97 H 93 H Pulse Rate from SpO2 Sensor 86 97 H 94 H Respiratory Rate 15 17 15 Blood Pressure Blood Pressure Mean Pulse Oximetry 95 96 95 Oxygen Delivery Method Sepsis Recent Fever Within 48 Hours Sepsis New/Unexplained Change in Mental Status Sepsis Action Taken by Nursing 10/25/21 12:00 10/25/21 12:10 10/25/21 12:20 Temperature Temperature Source Pulse Rate 91 H 91 H 93 H Pulse Rate from SpO2 Sensor 92 H 90 92 H Respiratory Rate 17 19 14 Blood Pressure Blood Pressure Mean Pulse Oximetry 99 96 95 Oxygen Delivery Method Sepsis Recent Fever Within 48 Hours Sepsis New/Unexplained Change in Mental Status Sepsis Action Taken by Nursing 10/25/21 12:30 Temperature Temperature Source Pulse Rate 89 Pulse Rate from SpO2 Sensor 88 Respiratory Rate 16 Blood Pressure Blood Pressure Mean Pulse Oximetry 95 Oxygen Delivery Method Sepsis Recent Fever Within 48 Hours Sepsis New/Unexplained Change in Mental Status Sepsis Action Taken by Nursing CONSTITUTIONAL: Healthy and well nourished. Patient appears in moderate discomfort. HEENT: No scleral icterus or conjunctival injection/pallor. NECK: Full active range of motion without discomfort. RESPIRATORY: Clear to auscultation bilaterally with no wheezing, crackles, rhonchi or stridor. CARDIOVASCULAR: Regular rate and rhythm with no murmurs, rubs or gallops. GASTROINTESTINAL: Bowel sounds present in all quadrants. Patient has notable tenderness to palpation, guarding and rebound of the right lower quadrant region. Negative CVA tenderness. MUSCULOSKELETAL: Full range of motion of all joints without discomfort. INTEGUMENTARY: No rash or other significant dermatologic conditions noted. HEMATOLOGIC: No ecchymosis or petechiae. PSYCHIATRIC: Positive affect. NEUROLOGIC: No focal neurologic deficits noted. Course Course Patient history and physical exam were performed. Nurses notes were reviewed. Vital signs were reviewed and were normal. IV access was established, and labs are drawn. The patient was hydrated with a liter normal saline, and administered IV morphine and Zofran for pain. Review of labs showed a normal white count with left shift and bandemia. CMP was otherwise grossly normal other than a mildly elevated total bilirubin at 1.1. Urinalysis shows no hematuria or signs of infection, and urine was negative. CT with IV contrast of the abdomen and pelvis shows inflammatory changes within the cecum, as well as dilatation and mild wall thickening of the base of the appendix. Radiologist suggested acute appendicitis. The patient was administered an additional dose of IV morphine because of persistent pain. Findings were discussed with the patient and . I also discussed the case further with Dr. Ferrara, ED attending physician, as well as Dr. Almeida, general surgeon on-call. Dr. Almeida reviewed CT images, and given the fact that the patient has had GI bleeding, has suggested that she likely has a cecal diverticulitis as opposed to an appendicitis. He will evaluate the patient, but however has recommended hospitalist admission for IV antibiotics. The patient was in agreement with this plan. The patient was ordered IV Zosyn. The case was then further discussed with Dr. Echevarria, [facility] hospitalist. Please see the hospitalist and general surgeon dictations for further treatment and final disposition. The patient did report improvement of her pain with IV medications provided. COVID-19 testing was ordered and was also negative. Administered Medications Morphine Sulfate (Morphine Sulfate 4 Mg/Ml 1 Ml Carp\\Vial) 4 mg IV Q4H PRN PRN Reason: Pain Stop: 11/08/21 14:30 Last Admin: 10/25/21 15:36 Dose: 4 mg Documented By: ACP Discontinued Medications Piperacillin Sod/Tazobactam Sod (Zosyn) 4.5 gm in 120 mls @ 240 mls/hr IV NOW ONE Stop: 10/25/21 12:18 Last Admin: 10/25/21 12:22 Dose: 240 mls/hr Documented By: AB Ioversol (Optiray 320 100ml) 95 ml IV ONCE ONE Stop: 10/25/21 10:50 Last Admin: 10/25/21 10:52 Dose: 95 ml Documented By: DEANN Morphine Sulfate (Morphine Sulfate 4 Mg/Ml 1 Ml Carp\\Vial) 4 mg IV NOW STA Stop: 10/25/21 09:14 Last Admin: 10/25/21 09:35 Dose: 4 mg Documented By: AM Morphine Sulfate (Morphine Sulfate 4 Mg/Ml 1 Ml Carp\\Vial) 4 mg IV NOW STA Stop: 10/25/21 10:26 Last Admin: 10/25/21 11:00 Dose: 4 mg Documented By: Ondansetron HCl (Ondansetron Inj 2 Mg/Ml 2 Ml Vial) 4 mg IV NOW STA Stop: 10/25/21 09:14 Last Admin: 10/25/21 09:33 Dose: 4 mg Documented By: AM Medical Decision Making Medical Records Attestation: I reviewed the patient's medical records. Home Medications Current Medication List: was personally reviewed by me Laboratory Data Attestation: I reviewed the patient's lab results. Result diagrams: 10/25/21 09:34 10/25/21 09:34 Lab Results 10/25/21 10/25/21 10/25/21 Range/Units 09:34 09:34 09:40 WBC 9.48 (4.8-10.8) K/ul RBC 3.81 L (3.93-5.22) M/uL Hgb 12.3 (12.0-16.0) g/dl Hct 35.9 (34.1-44.9) % MCV 94.2 (80.0-100.0) fL MCH 32.3 (25.0-34.0) pg MCHC 34.3 (32.0-36.0) g/dL RDW Std Deviation 42.9 (36.4-46.3) fL RDW Coeff of [place] 12.5 (11.5-14.5) % Plt Count 164 (130-400) K/uL MPV 11.2 (9.4-12.3) fL Immature Gran % (Auto) 0.3 % Neut % (Auto) 76.1 % Lymph % (Auto) 11.1 % [place] % (Auto) 11.1 % Eos % (Auto) 1.2 % Baso % (Auto) 0.2 % Neut # (Auto) 7.22 H (1.4-6.5) K/uL Lymph # (Auto) 1.05 L (1.2-3.4) K/uL [place] # (Auto) 1.05 H (0.24-0.82) K/uL Eos # (Auto) 0.11 (0-0.50) K/uL Baso # (Auto) 0.02 (0-0.2) K/uL Immature Gran # (Auto) 0.03 H (0.00-0.02) K/uL Sodium 139 (136-145) mmol/L Potassium 3.8 (3.5-5.1) mmol/L Chloride 106 (98-107) mmol/L Carbon Dioxide 28 (21-32) mmol/L Anion Gap 5 (3-11) BUN 9 (6-23) mg/dl Creatinine 0.71 (0.6-1.2) mg/dl Est Cr Clr Drug Dosing 104.5 ml/min Est GFR ( Amer) 125.2 ml/min Est GFR (Non-Af Amer) 108.1 ml/min BUN/Creatinine Ratio 12.7 (10-20) Glucose 84 (70-99(Fasting)) mg/dl Calcium 9.1 (8.5-10.1) mg/dl Total Bilirubin 1.1 H (0.2-1.0) mg/dl AST 15 (13-39) U/L ALT 11 (7-52) U/L Alkaline Phosphatase 66 (34-104) U/L Total Protein 6.7 (6.0-8.3) gm/dl Albumin 4.0 (3.4-5.0) gm/dl Globulin 2.7 (2.5-4.0) gm/dl Albumin/Globulin Ratio 1.5 (0.9-2) Lipase 15 (11-82) U/L Urine Color Yellow Urine Appearance Cloudy A (Clear) Urine pH 7.0 (4.5-7.5) Ur Specific [place] 1.017 (1.000-1.030) Urine Protein Negative (Negative) Urine Glucose (UA) Negative (Negative) Urine Ketones Negative (Negative) Urine Blood Negative (Negative) Urine Nitrite Negative (Negative) Urine Bilirubin Negative (Negative) Urine Urobilinogen Negative (Negative) Ur Leukocyte Esterase Negative (Negative) Urine WBC (Auto) 1-5 (0-5) /hpf Urine RBC (Auto) 0-4 (0-4) /hpf U Hyaline Cast (Auto) 1-5 (0-5) /lpf U Epithel Cells (Auto) >30 H (0-5) /lpf Urine Bacteria (Auto) Negative (Negative) Urine Test (Negative) 10/25/21 Range/Units 09:40 WBC (4.8-10.8) K/ul RBC (3.93-5.22) M/uL Hgb (12.0-16.0) g/dl Hct (34.1-44.9) % MCV (80.0-100.0) fL MCH (25.0-34.0) pg MCHC (32.0-36.0) g/dL RDW Std Deviation (36.4-46.3) fL RDW Coeff of [place] (11.5-14.5) % Plt Count (130-400) K/uL MPV (9.4-12.3) fL Immature Gran % (Auto) % Neut % (Auto) % Lymph % (Auto) % [place] % (Auto) % Eos % (Auto) % Baso % (Auto) % Neut # (Auto) (1.4-6.5) K/uL Lymph # (Auto) (1.2-3.4) K/uL [place] # (Auto) (0.24-0.82) K/uL Eos # (Auto) (0-0.50) K/uL Baso # (Auto) (0-0.2) K/uL Immature Gran # (Auto) (0.00-0.02) K/uL Sodium (136-145) mmol/L Potassium (3.5-5.1) mmol/L Chloride (98-107) mmol/L Carbon Dioxide (21-32) mmol/L Anion Gap (3-11) BUN (6-23) mg/dl Creatinine (0.6-1.2) mg/dl Est Cr Clr Drug Dosing ml/min Est GFR ( Amer) ml/min Est GFR (Non-Af Amer) ml/min BUN/Creatinine Ratio (10-20) Glucose (70-99(Fasting)) mg/dl Calcium (8.5-10.1) mg/dl Total Bilirubin (0.2-1.0) mg/dl AST (13-39) U/L ALT (7-52) U/L Alkaline Phosphatase (34-104) U/L Total Protein (6.0-8.3) gm/dl Albumin (3.4-5.0) gm/dl Globulin (2.5-4.0) gm/dl Albumin/Globulin Ratio (0.9-2) Lipase (11-82) U/L Urine Color Urine Appearance (Clear) Urine pH (4.5-7.5) Ur Specific [place] (1.000-1.030) Urine Protein (Negative) Urine Glucose (UA) (Negative) Urine Ketones (Negative) Urine Blood (Negative) Urine Nitrite (Negative) Urine Bilirubin (Negative) Urine Urobilinogen (Negative) Ur Leukocyte Esterase (Negative) Urine WBC (Auto) (0-5) /hpf Urine RBC (Auto) (0-4) /hpf U Hyaline Cast (Auto) (0-5) /lpf U Epithel Cells (Auto) (0-5) /lpf Urine Bacteria (Auto) (Negative) Urine Test Negative (Negative) Imaging Data Attestation: I personally reviewed and interpreted this imaging study as follows: My Impression: CT with IV contrast of the abdomen and pelvis shows cecal inflammation, as well as dilatation and edema at the base of the appendix. No bowel obstruction or free air noted. Radiologist report was also reviewed. Radiologist's Impression: Abdomen/Pelvis CT 10/25/21 09:13 CT abd pelvis IV con only CLINICAL HISTORY: Rectal bleed, R abd pain - h/o diverticulitis TECHNIQUE: Helical axial images of the abdomen and pelvis were obtained and displayed. Automated dose lowering techniques and/or adjustment according to patient size were utilized for this exam. This exam was performed with intravenous contrast. CT DOSE: 319.95 mGy.cm COMPARISON: Comparison is made to CT abdomen pelvis 10/25/2021 FINDINGS: Lower chest: No acute abnormality Liver: Unremarkable. No focal lesions are seen. Gallbladder and biliary tree: No calcified gallstones. Normal caliber wall. No intra- or extrahepatic biliary ductal dilation. Pancreas: Unremarkable, no focal lesions. Spleen: Unremarkable. Adrenals: Unremarkable. Kidneys and ureters: Unremarkable. Bladder: Unremarkable. Reproductive organs: Unremarkable. Bowel: The appendix measures 7 mm in diameter. Inflammatory changes are seen about the cecum. Extensive diverticulosis is noted. Lymph nodes Retroperitoneal: Unremarkable. Pelvic: Unremarkable. Mesenteric: Subcentimeter nodes are seen most prominent in the right lower quadrant. Peritoneum: Free fluid is seen in the right lower quadrant. Vessels: Unremarkable. Abdominal wall: A fat-containing umbilical hernia is seen. Bones: Unremarkable. IMPRESSION: There is dilation and mild wall thickening of the base of the appendix. Inflammatory changes are found in the cecum. This is favored to represent acute appendicitis with reactive changes in the adjacent cecum, however colitis in the cecum with reactive inflammation of the appendix is also possible. Fat stranding and regional prominent lymph nodes are noted however there is no evidence of perforation or abscess formation. ACT 112: Negative or not required by law. Electronically signed by: Dom Bonilla M.D. 10/25/2021 11:14 AM Blood Pressure Blood Pressure Findings: Normal blood pressure MDM Narrative Patient presents with right lower quadrant abdominal pain and rectal bleeding for the past several days. Patient does have history of cecal diverticulitis, and CT imaging today shows inflammation of the cecum as well as possible acute appendicitis. Given the patient's GI bleed as well, general surgeon suspect that the patient has an acute colitis, and has recommended admission for IV antibiotics. At this point, general surgery has suggested nonsurgical management, and will continue to follow during admission. CT does not show evidence for obvious diverticulitis, bowel perforation, free air or other acute intra-abdominal findings. Laboratory studies also are not suggestive of , UTI, pancreatitis, cholecystitis or hepatitis. Impression & Plan Colitis with rectal bleeding, Abdominal pain, right lower quadrant, History of diverticulitis Discharge Plan Visit Data Chief Complaint: Abdominal Pain Stated Complaint: ABDOMINAL PAIN ED Provider: Mateo Ferrara ED Midlevel Provider: Bartolo Chapman Discharge Problem: Colitis with rectal bleeding, Abdominal pain, right lower quadrant, History of diverticulitis Patient Disposition: Admitted As Inpatient Discharge Instructions Interventions: ED Discharge Assessment Last Done: 10/25/21 14:07
[2021-10-25] MEDS ORDERED: LACTATED RINGER'S 1,000 ML IV ONE (17:02)
[2021-10-25] MEDS: LACTATED RINGER'S 1,000 ML IV SCH (19:43)
[2021-10-25] MEDS: PIPERACILLIN/TAZOBACTAM 3.375 GM in DEXTROSE 5% 100 ML IV SCH (19:43)
[2021-10-26] MEDS: LACTATED RINGER'S 1,000 ML IV SCH ×2 (02:41→09:53)
[2021-10-26] MEDS: PIPERACILLIN/TAZOBACTAM 3.375 GM in DEXTROSE 5% 100 ML IV SCH ×3 (02:41→17:23)
[2021-10-26] MEDS: SERTRALINE HCL 100 MG TABLET PO SCH (08:33)
[2021-10-26] MEDS: ACETAMINOPHEN 1,000 MG/100 ML VIAL IV PRN ×2 (08:36→19:57)
[2021-10-26 09:07] LABS: Hematocrit (blood only) 30.8 % (34.1-44.9); Hemoglobin 10.4 g/dl (12.0-16.0); White Blood Count 6.33 K/ul (4.8-10.8)
[2021-10-26 09:37] LABS: BUN Creatinine Ratio 15.3 (10-20); Calcium 8.2 mg/dl (8.5-10.1); Creatinine Clr Calc Pharmacy 125.7 ml/min; Est GFR (African American) 134.8 ml/min; Est GFR (Non-African American) 116.3 ml/min; Potassium 3.8 mmol/L (3.5-5.1)
[2021-10-26 09:40] LABS: Basophils # (auto) 0.04 K/uL (0-0.2); Basophils % (auto) 0.6 %; Eosinophils # (auto) 0.18 K/uL (0-0.50); Eosinophils % (auto) 2.8 %; Immature Granulocytes # (auto) 0.01 K/uL (0.00-0.02); Immature Granulocytes % (auto) 0.2 %; Lymphocytes # (auto) 1.27 K/uL (1.2-3.4); Lymphocytes % (auto) 20.1 %; Mean Corpuscular Hgb Conc 33.8 g/dL (32.0-36.0); Mean Corpuscular Volume 94.8 fL (80.0-100.0); Mean Platelet Volume 11.3 fL (9.4-12.3); Monocytes # (auto) 0.49 K/uL (0.24-0.82); Monocytes % (auto) 7.7 %; Neutrophils # (auto) 4.34 K/uL (1.4-6.5); Neutrophils % (auto) 68.6 %; Platelet Count 134 K/uL (130-400); RDW Coefficient of Variation 12.2 % (11.5-14.5); RDW Standard Deviation 42.5 fL (36.4-46.3); Red Blood Count 3.25 M/uL (3.93-5.22)
--- NOTE | 2021-10-26 11:44 | Surgery Progress Note ---
Date of Service October 26, 2021 Assessment & Plan (1) Cecal diverticulitis: Plan 36 year-old female with history of cecal diverticulitis in 2019 now presents to ED with 4 day history of right lower abdominal pain with associated nausea, vomiting, dark stools and hematochezia. No leukocytosis. CT scan showing cecal inflammation with mild inflammation of the base of the appendix. Review of CT with radiologist shows normal appendiceal tip and likely inflammation of base of appendix is from the cecal diverticulitis. Plan: Would recommend another 24 hours of IV antibiotics given cecal inflammation on CT scan. Okay for clear diet today and advance as tolerated Can follow-up with DR. almeida as outpatient in 2-[address] Almeida has seen and examined pt, agrees with above. Admission and Anticipated Discharge Date Admission Date: October 25, 2021 Supervising Physician Co-Signing Physician Notes I have seen and examined the patient personally and agree with the above assessment and plan. We will plan for 24 more hours of IV antibiotics and then transition over to oral antibiotics. She may advance her diet as tolerated. She will follow-up with me as an outpatient in 2 to 4 weeks. Subjective feeling better today still having pain in right lower side but can now be pushed on without severe pain no nausea or vomiting passing gas no fevers or chills Physical Exam Constitutional: WD/WN, vitals as above no acute distress and not ill appearing Neck: normal visual inspection and trachea midline Respiratory: normal respiratory effort; no respiratory distress Gastrointestinal (Abdomen): Inspection/Auscultation: abdomen normal to inspection; abdomen not distended Percussion/Palpation: + abdomen tender (RLQ on deep palpation, improved) and abdomen soft; no guarding and abdomen not rigid Skin: no rashes, warm and dry Psychiatric: A+Ox3, euthymic affect Results & Data ([facility]) Vital Signs (Past 12 Hours) Vital Signs Temp Pulse Resp BP Pulse Ox O2 Del Method 10/26/21 07:26 36.9 C 79 18 109/68 95 Room Air Laboratory Results 10/26/21 10/26/21 10/25/21 Range/Units 08:37 08:37 12:52 WBC 6.33 (4.8-10.8) K/ul RBC 3.25 L (3.93-5.22) M/uL Hgb 10.4 L (12.0-16.0) g/dl Hct 30.8 L (34.1-44.9) % MCV 94.8 (80.0-100.0) fL MCH 32.0 (25.0-34.0) pg MCHC 33.8 (32.0-36.0) g/dL RDW Std Deviation 42.5 (36.4-46.3) fL RDW Coeff of [place] 12.2 (11.5-14.5) % Plt Count 134 (130-400) K/uL MPV 11.3 (9.4-12.3) fL Immature Gran % (Auto) 0.2 % Neut % (Auto) 68.6 % Lymph % (Auto) 20.1 % [place] % (Auto) 7.7 % Eos % (Auto) 2.8 % Baso % (Auto) 0.6 % Neut # (Auto) 4.34 (1.4-6.5) K/uL Lymph # (Auto) 1.27 (1.2-3.4) K/uL [place] # (Auto) 0.49 (0.24-0.82) K/uL Eos # (Auto) 0.18 (0-0.50) K/uL Baso # (Auto) 0.04 (0-0.2) K/uL Immature Gran # (Auto) 0.01 (0.00-0.02) K/uL Sodium 138 (136-145) mmol/L Potassium 3.8 (3.5-5.1) mmol/L Chloride 104 (98-107) mmol/L Carbon Dioxide 25 (21-32) mmol/L Anion Gap 9 (3-11) BUN 9 (6-23) mg/dl Creatinine 0.59 L (0.6-1.2) mg/dl Est Cr Clr Drug Dosing 125.7 ml/min Est GFR ( Amer) 134.8 ml/min Est GFR (Non-Af Amer) 116.3 ml/min BUN/Creatinine Ratio 15.3 (10-20) Glucose 65 L (70-99(Fasting)) mg/dl Calcium 8.2 L (8.5-10.1) mg/dl SARS-CoV-2, RNA, NAAT NEGATIVE (NEGATIVE)
--- NOTE | 2021-10-26 19:11 | Hospitalist Progress Note ---
Date of Service October 26, 2021 Assessment & Plan (1) Cecal diverticulitis: Plan: Improving nicely on Zosyn. Discussed with surgerythey prefer that she stay on IV antibiotics at least another day. Advance diet. Continue to follow. (2) Chronic constipation: Plan: Holding prucalopride (3) Anxiety: Plan: 100mg PO daily Plan VTE Prophylaxis - given young age patient at low risk, chemical prophylaxis deferred Diet - regular Disposition - stable on med surg, anticipate home tomorrow with further improvement Admission and Anticipated Discharge Date Admission Date: October 25, 2021 Subjective Pain feeling better. Feels like she could eat. Discussed with surgery. Input greatly appreciated. Review of Systems Review of Systems: All systems reviewed & are unremarkable except as noted in HPI & below Physical Exam Physical Exam: Vitals noted, in general she is awake and alert pleasant no distress. HEENT normocephalic atraumatic mucous membranes moist. Breathing unlabored no accessory muscle use good effort. Abdomen is soft very mild right- sided abdominal tenderness questionable at worst. No guarding rebound or rigidity. No neurodeficits Results & Data Results & Data ([facility]) Vital Signs (Past 12 Hours) Vital Signs Temp Pulse Resp BP Pulse Ox O2 Del Method 10/26/21 15:41 97.7 F 77 18 116/70 97 Room Air 10/26/21 07:26 98.4 F 79 18 109/68 95 Room Air PG Care Time/CCT Total # of Minutes Spent Total Time Spent with Patient: Total time spent is greater than 50% in coordination of care (as documented) at patient's floor/unit and/or counseling patient: Coding Level of Care Code 04925 Subseq Obs Care Lvl 2 Diagnoses Cecal diverticulitis K57.32 Chronic constipation K59.09 Anxiety F41.9
[2021-10-27] MEDS: PIPERACILLIN/TAZOBACTAM 3.375 GM in DEXTROSE 5% 100 ML IV SCH ×2 (01:33→08:12)
--- NOTE | 2021-10-27 05:42 | Surgery Progress Note ---
Date of Service October 27, 2021 Assessment & Plan (1) Cecal diverticulitis: Plan: Patient has been admitted on the hospitalist service. Continue care as follows: Continue diet as tolerated -Continue analgesics Continue antiemetics Continue IV antibiotics while in the hospital (she is receiving Zosyn). Transition patient to oral antibiotics at time of discharge Admission and Anticipated Discharge Date Admission Date: October 25, 2021 Supervising Physician Co-Signing Physician Notes As per Ignacio Casiano physician kindergarten instructional assistant Patient feels much better minimal discomfort Abdominal exam is negative except minimally tender right lower quadrant Subjective Patient is resting comfortably in bed. She notes marked improvement of pain that was noted at time of admission. She notes she had her diet advanced to solids yesterday which she tolerated without exacerbating any abdominal pain. She denies any nausea or vomiting. She denies any fevers, shakes, chills. She denies any difficulty with urination. She denies shortness of breath. Physical Exam Gastrointestinal (Abdomen): Abdomen is soft, nondistended. There is minimal tenderness with palpation in the right lower quadrant. No rebound tenderness or guarding. Results & Data ([facility]) Vital Signs (Past 12 Hours) Vital Signs Temp Pulse Resp BP Pulse Ox O2 Del Method 10/26/21 22:35 36.8 C 71 15 110/66 97 Room Air PG Care Time/CCT Total # of Minutes Spent Total Time Spent with Patient: Total time spent is greater than 50% in coordination of care (as documented) at patient's floor/unit and/or counseling patient: Coding Level of Care Code 76187 Subseq Hosp Care Lvl 1 Diagnoses Cecal diverticulitis K57.32
[2021-10-27] MEDS: SERTRALINE HCL 100 MG TABLET PO SCH (08:08)
--- NOTE | 2021-10-27 18:18 | Discharge Summary ---
Date of Service October 27, 2021 Admission HPI Per Admitting Provider Emma Jameson is a 36 year old female who presents to the ER with abdominal pain. She reports symptoms started on Friday (3 days ago) and progressively became worse since then. Similar to her last diverticulitis episode in 2018. Abdominal pain has stayed in lower abdomen but severity getting worse. Current severity 5/10, 7/10 on arrival to ER, at worst 9/10. Associated chills but no objective fever. The last 24 hours she has also had bright red blood per rectum. Taken off Orilissa on October 09 as ineffective for her endometriosis. On Motegrity for constipation. Sertraline for anxiety - notes she takes 100 rather than 150mg. In the ER CT A/P was concerning for possible appendicitis however on review by surgery suspect to be recurrence of her cecal diverticulitis. She was referred to medicine for admission and ongoing management for cecal diverticulitis. Principal Diagnosis Cecal diverticulitis Discharge Exam General she is awake and alert pleasant no distress. HEENT normocephalic atraumatic mucous membranes moist. Breathing unlabored no accessory muscle use good effort. Skin shows no rashes no pallor or icterus. Abdomen is soft nondistended nontender no masses organomegaly. Discharge Data Allergies Allergy/AdvReac Type Severity Reaction Status Date / Time ciprofloxacin Allergy Intermediate LIPS Verified 10/25/21 12:03 SWELLING Consultations 10/25/21 11:50 Consult General Surgery Stat Ordered Studies 10/25/21 09:13 CT abd pelvis IV con only Stat Hospital Course (1) Cecal diverticulitis: Improving nicely on Zosyn. Tolerating diet. Safe/stable for homefinish out a course with Augmentin. Outpatient PCP/surgery/GI follow-up. (2) Chronic constipation: Holding prucalopride (3) Anxiety: 100mg PO daily Plan VTE Prophylaxis - given young age patient at low risk, chemical prophylaxis deferred Diet - regular Disposition -for home Total Time Total Time Spent Total Time Spent (In Minutes): Less than 30 Discharge Plan Discharge Items Patient Disposition: Home - Self-Care Reason For Visit: diverticulitis Discharge Diagnosis: cecal diverticulitis Activity: Resume your previous activity Non-emergency contact: Primary Care Provider Call non-emergency contact if: you have any medication questions and your temperature is above 101 Follow-up/Referrals: Jeet Dey III, CRNP [Primary Care Provider] - Diet: Regular Addtl Attending Provider Instructions: cecal diverticulitis -this is an infection of diverticuli (small outpouchings that form off the side of our colon) - the "cecal" refers to the part of the colon where the diverticuli/infection happened (the cecum is where the small intestine hooks up with the colon) -fortunately this is getting better quickly - and finishing out a course of antibiotics should reign things in -- treatment duration really has a wide variation on it based on how quickly you get better -- so since we can't predict the future, the best way to do this is to write the Rx to cover for a full 14 days if it's needed, but then have you follow up in the office late next week -- if you're totally better, they can consider cutting the antibiotics short; if you're slowly getting better then they'll have you carry through with the longer course of treatment -we'll switch from the IV antibiotics to augmentin -- twice a day for another 12 days (presumptively - see above). your next dose of the augmentin will be at bedtime tonight. most people tolerate augmentin well - sometimes it can upset people's stomachs a little so take it with some food. -we'll want you to see Dr Almeida, general surgery for follow up. additionally, continue to follow with Dr Willis/Radha Chandra of the gastroenterology group Pending Studies at Discharge: No Stand-Alone Forms: My [facility] Xfire, Smoking Cessation Medications and DC Order Prescriptions: New amoxicillin-pot clavulanate 875-125 mg tablet 1 tab PO BID Qty: 24 0RF Continued Motegrity 2 mg tablet 2 mg PO DAILY Qty: 30 2RF sertraline 100 mg tablet 150 mg PO QAM Discharge Orders: Discharge Order (Routine); Ordered 10/27/21 Ordered By: Kendell Velázquez Admission Data Admit Date/Time: 10/25/21 12:34 Attending Provider: Kendell Velázquez Admit Provider: Johann Echevarria Primary Care Provider: Jeet Dey III Other Providers: Amauri Almeida ; Johann Echevarria Other Interventions: Discharge Summary Assessment (RN) Last Done: 10/27/21 13:54 Coding Level of Care Code 48658 OBS Care - Discharge Diagnoses Cecal diverticulitis K57.32 Chronic constipation K59.09 Anxiety F41.9
== END 2021-10-27 14:27 | disposition home or self-care (01) ==
LOC: ED 08:40 → 3W 08:40 → SUATTDRO 12:34 → 3W 14:07

== ENCOUNTER 2022-02-25 08:55 | Observation (INO) ==
--- NOTE | 2022-02-19 13:13 | Anesthesiology Consultation ---
Date of Service February 19, 2022 Assessment & Plan (1) Encounter for pre-operative examination: - COVID screening: Per assessment on 02/19: No known COVID-19 positive contacts or current COVID-19 related symptoms (pt did have sore throat 02/07- negative Covid/strep/flu testing, symptoms resolved. Denies infectious symptoms x 10+ days). Travel screen negative. Patient vaccinated. At surgeon discretion if preop Covid testing being done. - Check test AM DOS - S/P colonoscopy (01/28/22): MAC at [facility]. No issues noted per post-op anesthesia progress note. Chart Review Chart Review: Acceptable Risk for Surgery and Patient NOT seen in Pre Admission Testing History Surgery Operation Date: 02/25/22 08:35 Proposed Procedures p Laparoscopic Ileocecectomy Right Hemicolectomy - Amauri Almeida MD Height/Weight Height: 5 ft 7 in Weight: 65.771 kg Allergies Allergy/AdvReac Type Severity Reaction Status Date / Time ciprofloxacin Allergy Intermediate LIPS Verified 02/19/22 11:47 SWELLING Medications Home Medications Medication Instructions Recorded Confirmed Last Taken sertraline 100 mg tablet 100 mg PO QAM 03/15/21 02/19/22 01/27/22 polyethylene glycol 3350 17 17 g PO HS 01/22/22 02/19/22 01/24/22 gram/dose oral powder (Miralax) prucalopride 2 mg tablet 2 mg PO HS 01/22/22 02/19/22 01/26/22 (Motegrity) Past Medical History Medical History (Updated 02/19/22 @ 13:09 by Rosio Chawla) Anemia Hx, H/H WNL on most recent available labs 11/2021 Anxiety Cecal diverticulitis Chronic anemia Chronic constipation Diverticulosis GERD (gastroesophageal reflux disease) Mass of soft tissue of right lower extremity Chronic, "unchanged" Menorrhagia Ovarian cyst Left ovary, intermittent Spondylolisthesis Past Family History Family History Grandmother (Paternal) Diabetes Grandmother (Maternal) Diabetes Father Abdominal aortic aneurysm Cardiac disorder Myocardial infarction Hypertension Sister Abdominal aortic aneurysm Aunt Abdominal aortic aneurysm paternal aunt Breast cancer maternal aunt Uncle Abdominal aortic aneurysm paternal uncle Mother Hypertension Family/Other Myocardial infarction Hypertension grandparent Grandfather (Maternal) Lung cancer Other No family history of adverse response to anesthesia Denies family history of Pancreatic cancer Ovarian cancer Prostate cancer Bleeding disorder Colorectal cancer Uterine cancer Past Surgical History Surgical History History of dilatation and curettage 08/2017, 12/2021 History of tonsillectomy History of tooth extraction Hx of colonoscopy last 01/28/22 @ [facility] Nausea and vomiting after administration of anesthetic agent Social History Smoking Status: Never smoker Do You Dip or Chew Tobacco: No Hx Alcohol Use: Yes Alcohol type: wine alcohol intake frequency: a few times a month Hx Substance Use: No substance use type: does not use Testing Electrocardiogram Date: 05/31/21 NSR at 77bpm. Possible LAE. Chest X-Ray Date: 05/31/21 Findings: + NAD
[~2022-02-25 08:55] MED LIST changes: +ACETAMINOPHEN 1000 MG/100 ML IV IV ONE; -ATROPINE SULFATE 0.1 MG/ML 5ML SYR IV PRN; -DEXAMETHASONE SOD INJ 4 MG/ML VIAL ONE; -EpHEDrine SULFATE INJ 50 MG/ML AMP IV PRN; -FENTANYL CITRATE INJ 50 MCG/1 ML 2 ML VIAL IV PRN; -FENTANYL CITRATE INJ 50 MCG/1 ML 2 ML VIAL ONE; -IBUPROFEN 600 MG TAB PO PRN; -KETOROLAC TROMETHAMINE 30 MG/ML VIAL IV. PRN; -KETOROLAC TROMETHAMINE 30 MG/ML VIAL ONE; -LACTATED RINGER'S 1000ML 1,000 ML IV SCH; -LIDOCAINE HCL 2% 2 ML VIAL (20MG/ML) ONE; +LR 15ML/HR IV SCH; -MAGN1250 PO; -METOCLOPRAMIDE HCL INJ 5 MG/ML 2 ML VIAL IV PRN; -MIDAZOLAM HCL 1 MG/ML 2ML VIAL ONE; -MULT-506 PO; -ONDANSETRON INJ 2 MG/ML 2 ML VIAL IV PRN; -ONDANSETRON INJ 2 MG/ML 2 ML VIAL ONE; -OXYCODONE/ACETAMINOPHEN 5-325 TAB PO PRN; -PROPOFOL IV EMULSION 10 MG/ML 20 ML VIAL ONE; -SCOPOLAMINE 1.5 MG TDSY TD ONE; -SERT-234 PO; -SODIUM CHLORIDE 0.9% 1000ML 1,000 ML IV SCH; +cefOXitin 2,000 MG in DEXTROSE 5% 50 ML IV SCH
[2022-02-25] MEDS ORDERED: fentaNYL citrate 100 MCG/2 ML VIAL ONE ×2 (09:38→10:48)
[2022-02-25] MEDS ORDERED: MIDAZOLAM HCL 1 MG/ML 2ML VIAL ONE (09:38)
--- NOTE | 2022-02-25 09:42 | History & Physical Bridge Note ---
Date of Service February 25, 2022 History & Physical Bridge Note I have examined the patient, reviewed the History & Physical and in the interval since the performance of the History & Physical I have noted the following changes of clinical significance: no changes noted
[2022-02-25] MEDS ORDERED: ePHEDrine sulfate 50 MG/ML AMP IV PRN (10:01)
[2022-02-25] MEDS ORDERED: ATROPINE SULFATE 0.1 MG/ML 10ML SYR IV PRN (10:01)
[2022-02-25] MEDS ORDERED: PROMETHAZINE HCL 12.5 MG in SODIUM CHLORIDE 0.9% 50 ML IV PRN ×2 (10:01→14:20)
[2022-02-25] MEDS ORDERED: ONDANSETRON INJ 2 MG/ML 2 ML VIAL IV PRN (10:01)
[2022-02-25] MEDS ORDERED: HYDROmorphone INJ 1 MG/ML SYRINGE IV PRN (10:01)
[2022-02-25] MEDS ORDERED: BUPIVACAINE 0.5 % 5 MG/1 ML MPF 30ML VIAL ONE (10:22)
[2022-02-25] MEDS ORDERED: DEXAMETHASONE SOD INJ 4 MG/ML VIAL ONE (11:03)
[2022-02-25] MEDS ORDERED: PROPOFOL IV EMULSION 10 MG/ML 20 ML VIAL IV ONE (11:03)
[2022-02-25] MEDS ORDERED: ROCURONIUM BROMIDE 10 MG/ML 5 ML VIAL IV ONE ×6 (11:03→12:05)
[2022-02-25] MEDS ORDERED: GLYCOPYRROLATE 0.2 MG/ML VIAL ONE (11:03)
[2022-02-25] MEDS ORDERED: NEOSTIGMINE METHYLSULFATE 1 MG/ML 10ML VIAL ONE (11:03)
[2022-02-25] MEDS ORDERED: ONDANSETRON INJ 2 MG/ML 2 ML VIAL ONE (11:03)
[2022-02-25] MEDS ORDERED: LIDOCAINE 2% MPF LOCAL 5 ML VIAL INFIL ONE (11:03)
[2022-02-25] MEDS ORDERED: PHENYLEPHRINE 100MCG/ML 5ML SYR ONE (11:05)
--- NOTE | 2022-02-25 12:57 | Post Operative Brief Note ---
Immediate Post Op Note v1 Date of Surgery February 25, 2022 Pre & Post Diagnosis Operation Date: 02/25/22 10:35 Pre-Op Diagnosis: Cecal Diverticulitis Post-Op Diagnosis: Cecal Diverticulitis I identified the patient and participated in the time-out.: Yes Procedure Operation Date: 02/25/22 10:35 Actual Procedures p Laparoscopic Assisted Ileocecectomy (Not Applicable) - Amauri Almeida MD Surgeon Amauri Almeida MD Golf Player Assistant KILEY Ibarra assisted with tissue retraction, camera op, closure Estimated Blood Loss 15 Findings Consistent with Post-Op Diagnosis Drains Burk Catheter (inserted by Ann Marie Reed RN after induction.)
[2022-02-25] MEDS ORDERED: ePHEDrine sulfate 50 MG/ML SYR ONE (12:59)
--- NOTE | 2022-02-25 13:01 | Operative Report ---
Post Operative Report Pre & Post Diagnosis Operation Date: 02/25/22 10:35 Pre-Op Diagnosis: Cecal Diverticulitis Post-Op Diagnosis: Cecal Diverticulitis I identified the patient and participated in the time-out.: Yes Procedure Operation Date: 02/25/22 10:35 Actual Procedures p Laparoscopic Assisted Ileocecectomy (Not Applicable) - Amauri Almeida MD Surgeon Amauri Almeida MD Military Pay Clerk KILEY Ibarra assisted with tissue retraction, camera op, closure Estimated Blood Loss 15 Findings Consistent with Post-Op Diagnosis Specimens Cecum, terminal ileum, appendix Drains None Anesthesia Type General Complications No immediate complications Indications Multiple episodes of cecal diverticulitis with abscess Description of Procedure Patient was taken to the operating room, placed supine on the operating table. A timeout was performed, perioperative antibiotics were administered, SCD boots were placed. After adequate anesthesia and analgesia was obtained, a Burk catheter was placed, and the area was prepped and draped in the normal sterile fashion. Incision was made in the infraumbilical region carried down to the level of the fascia. The fascia was grasped with a trach hook, and a varies needle was used into the abdominal cavity. The abdomen was insufflated to pressure 15 mmHg, and a 11 mm trochars placed this location. A 10 mm 30 laparoscope was placed in the abdominal cavity, and the abdomen surveyed. There is no evidence of adhesions within the abdominal cavity. One 5 mm trochars placed in the right upper quadrant, and two 5 mm trochars were placed in the right lower quadrant and suprapubic region. The patient was placed airplane to the left. The terminal ileum, right colon, and appendix were mobilized along the white line of Toldt with the harmonic scalpel. The hepatic flexure was taken down with harmonic scalpel as well. Site was selected on the terminal ileum, and this was transected with the Endo CUCA stapler. Using the harmonic scalpel, we able to dissect free the mesentery of the terminal ileum, his appendix, and cecum. At this point, site was selected on the right lower quadrant and a transverse incision was made with 15 blade scalpel. This carried down to the level of the fascia. The fascia was opened, and the abdominal cavity was entered. A wound protector was placed. The cecum, terminal ileum, and right colon were delivered into the wound. Site was selected distally on the right colon and the colon was transected with a CUCA stapler. The specimen was sent off the field. A [id number], functional end-to-end anastomosis was created between the terminal ileum and the right colon using the CUCA stapler. The common channel was then closed in 2 layers, inner mucosal layer of running 3-0 Vicryl, and outer seromuscular Lembert style layer of interrupted 3-0 silk sutures. The mesenteric defect was closed with 3-0 Vicryl suture. A crotch stitch was placed with 3-0 silk suture. Attention was turned hemostasis, which was excellent. The anastomosis was delivered back through the wound into the abdominal cavity. The right lower quadrant incision was closed in 2 layers, inner layer of 0 Vicryl, outer layer of #1 PDS. The muscle was reapproximated with 2-0 chromic suture. The abdomen was then reinsufflated, and the 10 mm degree laparoscope was placed into the abdominal cavity. Inspection of the anastomosis yielded no evidence of bleeding. The abdomen was copiously irrigated and suctioned free. All trochars removed under direct visualization. The fascia in the 12 mm port site was closed with 0 Vicryl suture. The skin was closed with running 4 Monocryl subcuticular stitch. Dermabond was applied. She tolerated the procedure without complication, transferred in stable con dition to the PACU. All instrument, needle, and sponge counts were correct at the end of the case. My executive marketing assistant was necessary throughout the procedure for tissue retraction, possible camera operation, and closure of the wounds. I understand that section 1842(b)(7)(D) of the Social Security act generally prohibits Medicare physician fee schedule payment for the services of assistants at surgery in teaching hospitals when qualified residents are available to furnish such services. I certify that the services for which payment is claimed were medically necessary and that no qualified resident was available to perform the services. I further understand that these services are subject to postpayment review by the Medicare carrier. I attest to the content of the Intraoperative Record and any orders documented therein. Any exceptions are noted below.
[2022-02-25] MEDS: fentaNYL citrate 100 MCG/2 ML VIAL IV PRN ×3 (13:27→13:54)
--- NOTE | 2022-02-25 14:04 | Anesthesiology Progress Note ---
Date of Service February 25, 2022 Anesthesia Post Procedure Vital Signs Vital Signs: Temp Pulse Pulse Resp BP Pulse Ox O2 Del Method 02/25/22 13:55 80 17 119/73 95 Room Air 02/25/22 13:45 98 H 17 125/78 99 Room Air 02/25/22 13:35 84 14 121/73 99 Oxymask 02/25/22 13:25 86 17 128/78 100 Oxymask 02/25/22 13:19 36.9 C 112 H 20 130/70 98 Oxymask 02/25/22 09:30 36.9 C 83 20 141/86 H 98 Room Air O2 Flow Rate 02/25/22 13:55 02/25/22 13:45 02/25/22 13:35 5 02/25/22 13:25 5 02/25/22 13:19 9 02/25/22 09:30 Pain Intensity Abdomen: Pain Intensity: 6 Transfer of Care Handoff Completed per policy Notes Mental Status: alert / awake / arousable and participated in evaluation Patient Amnestic to Procedure: Yes Nausea / Vomiting: adequately controlled Pain: adequately controlled Airway Patency, RR, SpO2: stable & adequate BP & HR: stable & adequate Hydration State: stable & adequate Anesthetic Complications: no major complications apparent
[2022-02-25] MEDS ORDERED: ACETAMINOPHEN 1,000 MG/100 ML VIAL IV PRN (14:20)
[2022-02-25] MEDS: MoRPHine SULFATE 2 MG/ML CARP IV PRN ×2 (15:55→19:46)
[2022-02-25] MEDS: ONDANSETRON INJ 2 MG/ML 2 ML VIAL IV PRN ×2 (15:55→19:52)
[2022-02-25] MEDS: oxyCODONE/ACETAMINOPHEN 5mg/325mg TAB PO PRN ×2 (16:28→22:37)
[2022-02-25] MEDS: LACTATED RINGER'S 1,000 ML IV SCH (16:29)
[2022-02-25] MEDS: ENOXAPARIN INJ 40 MG/0.4 ML SYR SQ SCH (16:38)
[2022-02-26] MEDS: KETOROLAC 30 MG/ML VIAL IV PRN ×3 (03:31→17:49)
[2022-02-26 07:54] LABS: Basophils # (auto) 0.02 K/uL (0-0.2); Basophils % (auto) 0.2 %; Eosinophils # (auto) 0.03 K/uL (0-0.50); Eosinophils % (auto) 0.3 %; Hemoglobin 11.5 g/dl (12.0-16.0); Immature Granulocytes # (auto) 0.03 K/uL (0.00-0.02); Immature Granulocytes % (auto) 0.3 %; Lymphocytes # (auto) 1.86 K/uL (1.2-3.4); Lymphocytes % (auto) 20.6 %; Mean Corpuscular Hgb Conc 33.8 g/dL (32.0-36.0); Mean Corpuscular Volume 94.7 fL (80.0-100.0); Mean Platelet Volume 10.9 fL (9.4-12.3); Monocytes # (auto) 0.94 K/uL (0.24-0.82); Monocytes % (auto) 10.4 %; Neutrophils # (auto) 6.13 K/uL (1.4-6.5); Neutrophils % (auto) 68.2 %; Platelet Count 217 K/uL (130-400); RDW Coefficient of Variation 11.9 % (11.5-14.5); RDW Standard Deviation 41.1 fL (36.4-46.3); Red Blood Count 3.59 M/uL (3.93-5.22); White Blood Count 9.01 K/ul (4.8-10.8)
[2022-02-26 08:29] LABS: Potassium 3.8 mmol/L (3.5-5.1)
[2022-02-26 08:30] LABS: Albumin Globulin Ratio 1.3 (0.9-2); Albumin Level 3.4 gm/dl (3.4-5.0); BUN Creatinine Ratio 13.6 (10-20); Bilirubin,Total 0.9 mg/dl (0.2-1.0); Calcium 8.3 mg/dl (8.5-10.1); Creatinine Clr Calc Pharmacy 112.4 ml/min; Est GFR (African American) 129.9 ml/min; Est GFR (Non-African American) 112.1 ml/min; Globulin 2.7 gm/dl (2.5-4.0); Total Protein 6.1 gm/dl (6.0-8.3)
[2022-02-26] MEDS ORDERED: ACETAMINOPHEN 325 MG TAB PO PRN (08:39)
--- NOTE | 2022-02-26 08:44 | Surgery Progress Note ---
Date of Service February 26, 2022 Assessment & Plan (1) Cecal diverticulitis: Plan: POD # 1 s/p laparoscopic assisted ileocecectomy -afebrile, vss - postop op pain controlled - no return of bowel function yet Plan: Continue pain management as needed Continue clear liquids Encouraged OOB to chair and ambulation today to increase GI motility Incentive spirometry SCDs and Lovenox for DVT prophylaxis antiemetics as needed Admission and Anticipated Discharge Date Admission Date: February 25, 2022 Subjective Feeling sore with movement or coughing pain controlled with meds nausea resolved, no vomiting feeling bloated and having gas pains not passing gas yet has not ambulated or sat in chair no chest pain or shortness of breath Physical Exam Constitutional: WD/WN, vitals as above no acute distress and not ill appearing Respiratory: normal respiratory effort; no respiratory distress, no labored breathing and no retractions Gastrointestinal (Abdomen): Inspection/Auscultation: abdomen normal to inspection, + abdominal surgical incision (clean,dry,intact with dermabond) and + hypoactive bowel sounds; abdomen not distended and + abnormal bowel sounds Percussion/Palpation: + abdomen tender (generalized in mid abdomen and at incision sites, appropriate postop) and abdomen soft; no guarding and abdomen not rigid Psychiatric: A+Ox3, euthymic affect Results & Data ([facility]) Vital Signs (Past 12 Hours) Vital Signs Temp Pulse Resp BP Pulse Ox O2 Del Method 02/26/22 07:06 36.9 C 89 16 115/71 95 Room Air 02/26/22 03:30 36.5 C 83 16 111/74 97 Room Air 02/25/22 21:00 Room Air 02/25/22 22:50 36.9 C 84 16 108/51 L 96 Room Air Laboratory Results 02/26/22 02/26/22 02/25/22 Range/Units 07:33 07:33 Unknown WBC 9.01 (4.8-10.8) K/ul RBC 3.59 L (3.93-5.22) M/uL Hgb 11.5 L (12.0-16.0) g/dl Hct 34.0 L (34.1-44.9) % MCV 94.7 (80.0-100.0) fL MCH 32.0 (25.0-34.0) pg MCHC 33.8 (32.0-36.0) g/dL RDW Std Deviation 41.1 (36.4-46.3) fL RDW Coeff of Aprisa 11.9 (11.5-14.5) % Plt Count 217 (130-400) K/uL MPV 10.9 (9.4-12.3) fL Immature Gran % (Auto) 0.3 % Neut % (Auto) 68.2 % Lymph % (Auto) 20.6 % Merrick % (Auto) 10.4 % Eos % (Auto) 0.3 % Baso % (Auto) 0.2 % Neut # (Auto) 6.13 (1.4-6.5) K/uL Lymph # (Auto) 1.86 (1.2-3.4) K/uL Merrick # (Auto) 0.94 H (0.24-0.82) K/uL Eos # (Auto) 0.03 (0-0.50) K/uL Baso # (Auto) 0.02 (0-0.2) K/uL Immature Gran # (Auto) 0.03 H (0.00-0.02) K/uL Sodium 137 (136-145) mmol/L Potassium 3.8 (3.5-5.1) mmol/L Chloride 106 (98-107) mmol/L Carbon Dioxide 28 (21-32) mmol/L Anion Gap 3 (3-11) BUN 9 (6-23) mg/dl Creatinine 0.66 (0.6-1.2) mg/dl Est Cr Clr Drug Dosing 112.4 ml/min Est GFR ( Amer) 129.9 ml/min Est GFR (Non-Af Amer) 112.1 ml/min BUN/Creatinine Ratio 13.6 (10-20) Glucose 90 (70-99(Fasting)) mg/dl Calcium 8.3 L (8.5-10.1) mg/dl Total Bilirubin 0.9 (0.2-1.0) mg/dl AST 17 (13-39) U/L ALT 11 (7-52) U/L Alkaline Phosphatase 57 (34-104) U/L Total Protein 6.1 (6.0-8.3) gm/dl Albumin 3.4 (3.4-5.0) gm/dl Globulin 2.7 (2.5-4.0) gm/dl Albumin/Globulin Ratio 1.3 (0.9-2) POC Ur Test (NEG) SARS-CoV-2, RNA, NAAT NEGATIVE (NEGATIVE) Blood Type Antibody Screen 02/25/22 02/25/22 Range/Units 09:12 09:06 WBC (4.8-10.8) K/ul RBC (3.93-5.22) M/uL Hgb (12.0-16.0) g/dl Hct (34.1-44.9) % MCV (80.0-100.0) fL MCH (25.0-34.0) pg MCHC (32.0-36.0) g/dL RDW Std Deviation (36.4-46.3) fL RDW Coeff of Parisa (11.5-14.5) % Plt Count (130-400) K/uL MPV (9.4-12.3) fL Immature Gran % (Auto) % Neut % (Auto) % Lymph % (Auto) % [place]rick % (Auto) % Eos % (Auto) % Baso % (Auto) % Neut # (Auto) (1.4-6.5) K/uL Lymph # (Auto) (1.2-3.4) K/uL Merrick # (Auto) (0.24-0.82) K/uL Eos # (Auto) (0-0.50) K/uL Baso # (Auto) (0-0.2) K/uL Immature Gran # (Auto) (0.00-0.02) K/uL Sodium (136-145) mmol/L Potassium (3.5-5.1) mmol/L Chloride (98-107) mmol/L Carbon Dioxide (21-32) mmol/L Anion Gap (3-11) BUN (6-23) mg/dl Creatinine (0.6-1.2) mg/dl Est Cr Clr Drug Dosing ml/min Est GFR ( Amer) ml/min Est GFR (Non-Af Amer) ml/min BUN/Creatinine Ratio (10-20) Glucose (70-99(Fasting)) mg/dl Calcium (8.5-10.1) mg/dl Total Bilirubin (0.2-1.0) mg/dl AST (13-39) U/L ALT (7-52) U/L Alkaline Phosphatase (34-104) U/L Total Protein (6.0-8.3) gm/dl Albumin (3.4-5.0) gm/dl Globulin (2.5-4.0) gm/dl Albumin/Globulin Ratio (0.9-2) POC Ur Test NEG (NEG) SARS-CoV-2, RNA, NAAT (NEGATIVE) Blood Type O Positive Antibody Screen NEGATIVE
[2022-02-26] MEDS: ENOXAPARIN INJ 40 MG/0.4 ML SYR SQ SCH (14:49)
[2022-02-26] MEDS: oxyCODONE/ACETAMINOPHEN 5mg/325mg TAB PO PRN (20:09)
[2022-02-26] MEDS: LACTATED RINGER'S 1,000 ML IV SCH ×2 (20:10)
[2022-02-27] MEDS: KETOROLAC 30 MG/ML VIAL IV PRN (05:36)
[2022-02-27 08:04] LABS: Basophils # (auto) 0.03 K/uL (0-0.2); Basophils % (auto) 0.4 %; Eosinophils # (auto) 0.14 K/uL (0-0.50); Eosinophils % (auto) 1.9 %; Hematocrit (blood only) 33.8 % (34.1-44.9); Hemoglobin 11.5 g/dl (12.0-16.0); Immature Granulocytes # (auto) 0.03 K/uL (0.00-0.02); Immature Granulocytes % (auto) 0.4 %; Lymphocytes # (auto) 1.39 K/uL (1.2-3.4); Lymphocytes % (auto) 19.2 %; Mean Corpuscular Hemoglobin 32.6 pg (25.0-34.0); Mean Corpuscular Volume 95.8 fL (80.0-100.0); Monocytes # (auto) 0.62 K/uL (0.24-0.82); Monocytes % (auto) 8.6 %; Neutrophils # (auto) 5.04 K/uL (1.4-6.5); Neutrophils % (auto) 69.5 %; Platelet Count 211 K/uL (130-400); RDW Coefficient of Variation 11.9 % (11.5-14.5); RDW Standard Deviation 41.8 fL (36.4-46.3); Red Blood Count 3.53 M/uL (3.93-5.22); White Blood Count 7.25 K/ul (4.8-10.8)
[2022-02-27 08:32] LABS: Albumin Globulin Ratio 1.4 (0.9-2); Albumin Level 3.4 gm/dl (3.4-5.0); BUN Creatinine Ratio 11.3 (10-20); Bilirubin,Total 0.7 mg/dl (0.2-1.0); Calcium 8.5 mg/dl (8.5-10.1); Creatinine Clr Calc Pharmacy 119.6 ml/min; Est GFR (African American) 132.6 ml/min; Est GFR (Non-African American) 114.4 ml/min; Globulin 2.5 gm/dl (2.5-4.0); Potassium 4.1 mmol/L (3.5-5.1); Total Protein 5.9 gm/dl (6.0-8.3)
--- NOTE | 2022-02-27 10:18 | Surgery Progress Note ---
Date of Service February 27, 2022 Assessment & Plan (1) Cecal diverticulitis: Plan: POD # 2 s/p laparoscopic assisted ileocecectomy -afebrile, vss - postop op pain controlled - +flatus Plan: Continue pain management as needed advance to low fiber diet dc iv fluids continue ambulation Incentive spirometry SCDs and Lovenox for DVT prophylaxis antiemetics as needed Dr. Almeida has seen and examined patient and agrees with above. Admission and Anticipated Discharge Date Admission Date: February 25, 2022 Subjective Feeling better today Passing more gas but no bowel movement yet Tolerating clear liquids No nausea no vomiting No chest pain or shortness of breath Ambulating hallways Urinating without difficulty Physical Exam Constitutional: WD/WN, vitals as above no acute distress and not ill appearing Respiratory: normal respiratory effort; no respiratory distress Gastrointestinal (Abdomen): Inspection/Auscultation: abdomen normal to inspection, normal bowel sounds and + abdominal surgical incision (Clean, dry, intact with surgical glue); abdomen not distended Percussion/Palpation: + abdomen tender (Mild tenderness at incision sites but significantly proved compared to yest) and abdomen soft; no guarding, abdomen not rigid and abdomen not firm Skin: no rashes, warm and dry Psychiatric: A+Ox3, euthymic affect Results & Data ([facility]) Vital Signs (Past 12 Hours) Vital Signs Temp Pulse Resp BP Pulse Ox O2 Del Method 02/27/22 08:38 36.8 C 70 18 127/80 97 Room Air 02/27/22 04:00 36.9 C 70 18 118/71 98 Room Air Laboratory Results 02/27/22 02/27/22 Range/Units 07:43 07:43 WBC 7.25 (4.8-10.8) K/ul RBC 3.53 L (3.93-5.22) M/uL Hgb 11.5 L (12.0-16.0) g/dl Hct 33.8 L (34.1-44.9) % MCV 95.8 (80.0-100.0) fL MCH 32.6 (25.0-34.0) pg MCHC 34.0 (32.0-36.0) g/dL RDW Std Deviation 41.8 (36.4-46.3) fL RDW Coeff of Parisa 11.9 (11.5-14.5) % Plt Count 211 (130-400) K/uL MPV 11.0 (9.4-12.3) fL Immature Gran % (Auto) 0.4 % Neut % (Auto) 69.5 % Lymph % (Auto) 19.2 % [place] % (Auto) 8.6 % Eos % (Auto) 1.9 % Baso % (Auto) 0.4 % Neut # (Auto) 5.04 (1.4-6.5) K/uL Lymph # (Auto) 1.39 (1.2-3.4) K/uL [place] # (Auto) 0.62 (0.24-0.82) K/uL Eos # (Auto) 0.14 (0-0.50) K/uL Baso # (Auto) 0.03 (0-0.2) K/uL Immature Gran # (Auto) 0.03 H (0.00-0.02) K/uL Sodium 141 (136-145) mmol/L Potassium 4.1 (3.5-5.1) mmol/L Chloride 110 H (98-107) mmol/L Carbon Dioxide 27 (21-32) mmol/L Anion Gap 4 (3-11) BUN 7 (6-23) mg/dl Creatinine 0.62 (0.6-1.2) mg/dl Est Cr Clr Drug Dosing 119.6 ml/min Est GFR ( Amer) 132.6 ml/min Est GFR (Non-Af Amer) 114.4 ml/min BUN/Creatinine Ratio 11.3 (10-20) Glucose 90 (70-99(Fasting)) mg/dl Calcium 8.5 (8.5-10.1) mg/dl Total Bilirubin 0.7 (0.2-1.0) mg/dl AST 18 (13-39) U/L ALT 12 (7-52) U/L Alkaline Phosphatase 57 (34-104) U/L Total Protein 5.9 L (6.0-8.3) gm/dl Albumin 3.4 (3.4-5.0) gm/dl Globulin 2.5 (2.5-4.0) gm/dl Albumin/Globulin Ratio 1.4 (0.9-2)
[2022-02-27] MEDS: ENOXAPARIN INJ 40 MG/0.4 ML SYR SQ SCH (15:06)
[2022-02-27] MEDS: oxyCODONE/ACETAMINOPHEN 5mg/325mg TAB PO PRN (19:45)
--- NOTE | 2022-03-05 11:17 | Discharge Summary ---
Date of Service March 05, 2022 Principal Diagnosis cecal diverticulitis Discharge Data Allergies Allergy/AdvReac Type Severity Reaction Status Date / Time ciprofloxacin Allergy Intermediate LIPS Verified 03/04/22 14:49 SWELLING Procedures Performed Operation Date: 02/25/22 10:35 Actual Procedures p Laparoscopic Assisted Ileocecectomy (Not Applicable) - Amauri Almeida MD Hospital Course (1) Diverticulitis: she was admitted from home and taken to the operating room for a laparoscopic ileocecectomy, the details of which are dictated a separate operative note. Postoperatively she was transferred stable condition to the PACU and subsequently to the floor. DVT prophylaxis was maintained with SCD boots and Lovenox subcutaneous. Early ambulation incentive spirometry were encouraged. Pain control with IV and p.o. medications. Her diet was slowly advanced as tolerated. By the date of discharge, she was not requiring any IV pain medication, was tolerating a regular diet. She was discharged to home on postoperative day 3 in stable condition. She will follow up in clinic in 2 weeks. Total Time Total Time Spent Total Time Spent (In Minutes): 30 minutes Discharge Plan Discharge Items Patient Disposition: Home - Self-Care Reason For Visit: Cecal Diverticulitis Discharge Diagnosis: Cecal Diverticulitis s/p laparoscopic assisted ileocecectomy Activity: Per Instructions section Non-emergency contact: Primary Care Provider and Surgeon Call non-emergency contact if: you have any medication questions, your pain is not controlled, your pain is worsening, you have a fever, your temperature is a gabriel 101, your wound has increased redness, your wound has increased drainage and your wound pain has increased Follow-up/Referrals: Amauri Almeida MD [Physician] - Jeet Dey III, CRNP [Primary Care Provider] - Diet: Low Fiber Addtl Attending Provider Instructions: Post-Surgical ~Discharge Instructions Activity Recommendations: - lifting limitation: (10 pounds for 6 weeks), - exercise/sex/sports limit: (nonstrenuous for 6 weeks), - driving or machine use limit: (none for 1 week or until pain free), - Shower/bathe limit: (may shower) Diet: - Low fiber diet for 1-2 weeks and then advance to regular diet SPECIAL CARE INSTRUCTIONS: - May shower.. Let water run over area and pat dry. - Surgical glue will fall off on its own. - Call the surgeon's office with any questions or concerns - - (ex. temperature higher than 101 degrees F, excessive bleeding or pain). MEDICATIONS: - Resume previous medications unless instructed otherwise by your surgeon. - May alternate extra strength Tylenol and Ibuprofen as needed for mild to moderate pain -650 mg Tylenol every 6 hours as needed - Ibuprofen 600 mg every 6 hours as needed (take with food) - Percocet 1 every 6 hours, as needed for severe pain FOLLOW UP VISIT: - If not already scheduled, please call the office to schedule a two week follow-up appointment. Office number Pending Studies at Discharge: Yes (surgical pathology) Stand-Alone Forms: My [facility], Smoking Cessation Medications and DC Order Prescriptions: New oxycodone-acetaminophen [Percocet] 5-325 mg tablet 1 tab PO Q6H PRN (Reason: pain) Qty: 20 0RF Continued sertraline [Zoloft] 100 mg tablet 100 mg PO QAM polyethylene glycol 3350 [Miralax] 17 gram/dose powder 17 g PO HS Motegrity 2 mg tablet 2 mg PO HS Discharge Orders: Discharge Order (Routine); Ordered 02/28/22 Ordered By: Amauri Almeida Admission Data Admit Date/Time: 02/27/22 14:25 Attending Provider: Amauri Almeida Admit Provider: Amauri Almeida Primary Care Provider: Jeet Dey III Other Interventions: Discharge Summary Assessment (RN) Last Done: 02/28/22 11:41
== END 2022-02-28 12:02 | disposition home or self-care (01) ==
LOC: ASU 08:55 → 3N 08:55